=== PATIENT | female | born 1975 | race Two or more races ===

== ENCOUNTER 2024-04-20 21:23 | Emergency (ER) | payer MEDICAID, SELFPAY ==
[2024-04-20 21:24] VITALS: BMI 22.1
[2024-04-20 22:01] VITALS: BP 156/74; PULSE 92; RESP 17; TEMP 36.7; O2SAT 100
--- NOTE | 2024-04-20 22:16 | XR_ITS ---
Examination: PA lateral chest 2 views Technique: Upright PA lateral chest 2 views Exam date and time: April 20, 2024 10:30 PM Comparison December 09, 2023 Indications: Chest pain today. Findings: Normal heart size. Lungs are clear. Osseous structures are intact. Impression: No active disease
--- NOTE | 2024-04-20 22:17 | PD.EDRME ---
Rapid Medical Screening Exam E Arrival date/time: 04/20/24 21:23 48-year-old female with past medical history of diabetes presents to the emergency department complaining of chest pain, diarrhea, shortness of breath, and low blood sugars in the 40s. Chief Complaint: Chest Pain Vital signs: Vital Signs Temperature 98.0 F 04/20/24 22:01 Pulse Rate 92 04/20/24 22:01 Respiratory Rate 17 04/20/24 22:01 Blood Pressure 156/74 H 04/20/24 22:01 Pulse Oximetry (%) 100 04/20/24 22:01 Oxygen Delivery Method Room Air 04/20/24 22:01 Vital signs reviewed by provider: Yes
[2024-04-20 22:44] LABS: Basophils # (Auto) 0.1 Thou/mm3 (0.0-0.2); Basophils % (Auto) 1 % (0-2.5); Eosinophils # (Auto) 0.2 Thou/mm3 (0.0-0.5); Eosinophils % (Auto) 3 % (0-10); Hematocrit 35.6 % (36.0-46.0); Hemoglobin 11.9 g/dL (12.0-16.0); Immature Granulocytes % (Auto) 0 % (0-0); Immature Granulocytes Auto 0.02 Thou/mm3 (0.00-0.00); Lymphocytes # (Auto) 2.1 Thou/mm3 (1.0-4.8); Lymphocytes % (Auto) 26 % (10-50); Mean Corpuscular HGB Conc 33.4 g/dl (31.0-37.0); Mean Corpuscular Hemoglobin 28.8 pg (25.0-35.0); Mean Corpuscular Volume 86 fL (80-100); Monocytes # (Auto) 0.7 Thou/mm3 (0.0-0.8); Monocytes % (Auto) 9 % (0-12); Neutrophils # (Auto) 5.1 Thou/mm3 (1.8-7.7); Neutrophils % (Auto) 62 % (37-80); Nucleated Red Blood Cell % 0 /100 WBC (0); Platelet Count 277 Thou/mm3 (140-440); RDW Standard Deviation 40.8 fL (36.4-46.3); Red Blood Count 4.13 Miln/mm3 (4.00-5.20); White Blood Count 8.2 Thou/mm3 (3.6-11.0)
[2024-04-20 22:58] LABS: HCG,Qualitative Serum Negative
[2024-04-20 23:02] LABS: Partial Thromboplastin Time 24.1 Seconds (22.0-36.0); Prothrombin Time 10.5 Seconds (9.0-12.2)
[2024-04-20 23:13] LABS: B-Type Natriuretic Peptide < 20 pg/mL (0-100)
[2024-04-20 23:18] LABS: Alanine Aminotransferase 32 U/L (10-49); Albumin, Serum 4.7 gm/dL (3.5-5.0); Albumin/Globulin Ratio 1.7 (1.2-2.2); Alkaline Phosphatase 170 U/L (46-116); Anion Gap 8 (7-16); Aspartate Amino Transferase 37 U/L (0-34); BUN/Creatinine Ratio 23 Ratio (12-20); Bilirubin,Total 0.3 mg/dL (0.3-1.2); Blood Urea Nitrogen 32 mg/dL (9-23); Calcium 10.7 mg/dL (8.3-10.6); Calcium (Corrected) 10.7 mg/dL (8.5-10.1); Carbon Dioxide 24.8 mMol/L (20.0-31.0); Chloride 105 mMol/L (98-107); Creatinine (Component) 1.4 mg/dL (0.6-1.3); Globulin 2.8 gm/dL (2.3-3.5); Glucose 129 mg/dL (74-106); Magnesium 1.8 mg/dL (1.6-2.6); Osmolality,Calculated 284 (275-295); Potassium 3.6 mMol/L (3.4-5.1); Sodium 138 mMol/L (136-145); Total Protein 7.5 gm/dL (5.7-8.2); Troponin I < 0.020 ng/mL (0.0-0.045); eGFR 47 See Note
[2024-04-20 23:31] LABS: Collection Type, Urine Clean Catch
[2024-04-20 23:42] LABS: Bilirubin,Urine Negative (Negative); Blood,Urine Negative (Negative); Clarity,Urine Clear (Clear/Hazy); Color,Urine Colorless (Lt Yel-Yel); Culture Indicated,Urine Not Indicated; Glucose, Urine 4+ (Negative); Ketones,Urine Negative (Negative); Leukocyte Esterase,Urine Negative (Negative); Nitrite,Urine Negative (Negative); PH,Urine 5.5 (5.0-7.0); Protein,Urine Negative (Neg - Trace); RBC,Urine 5 /hpf (0-3); Specific Gravity,Urine 1.018 (1.001-1.035); Squamous Epithelial Cell,Urine 1 /hpf (0-5); Urobilinogen,Urine Negative mg/dL (0.0-1.0); WBC,Urine 1 /hpf (0-5)
[2024-04-20 23:52] LABS: Amphetamine/Methamp Scrn,U Positive (Negative); Barbiturate Screen,Urine Negative (Negative); Benzodiazepines Screen,Urine Negative (Negative); Benzoylecgonine Screen, Ur Negative (Negative); Fentanyl Screen,Urine Negative (Negative); Opiate Screen,Urine Negative (Negative); THC Screen,Urine Negative (Negative)
[2024-04-21 01:56] LABS: LDH (Lactate Dehydrogenase) 327 U/L (120-246)
[2024-04-21 01:58] VITALS: BP 111/60; PULSE 86; RESP 18; TEMP 36.5; O2SAT 97
[2024-04-21 04:20] LABS: Troponin I < 0.020 ng/mL (0.0-0.045)
--- NOTE | 2024-04-21 04:43 | PD.EDCHEST ---
ED Chest Pain RME/HPI General Chief Complaint: Chest Pain Stated Complaint: CHEST PAIN, SOB, DIARRHEA Source: patient Arrival date/time: 04/20/24 21:23 Mode of arrival: ambulatory Limitations: no limitations RME / HPI RME / HPI narrative: 04/20/24 21:23 48-year-old female with past medical history of diabetes presents to the emergency department complaining of chest pain, diarrhea, shortness of breath, and low blood sugars in the 40s. Dr. Avitia?s Main ED Evaluation: 48-year-old female with a history of HTN, dyslipidemia, NIDDM2 who presents with intermittent sticking/poking chest pain that came and went several times over yesterday evening. Patient notes the pain, spontaneously resolved, and she has not had any further pain since being in the emergency department. She also notes irregular bowel movements, where she goes from normal bowels to soft stools approximately 5 to 6 times a day since Halloween republican. She admits using methamphetamines at this republican, in addition to weed, and alcohol. She denies sick contacts. She denies blood in her stool. She denies recent fevers, chill sweats, or cough. She denies shortness of breath. Related Data Home Medications ?Medication ?Instructions ?Recorded ?Confirmed insulin lispro protamine-lispro 40 unit subcut BID 01/27/20 04/17/22 100 unit/mL (75-25) subcutaneous susp (Humalog Mix 75-25(U-100)Insuln) atorvastatin 20 mg tablet 20 mg PO QDAY 04/17/22 04/17/22 cyclobenzaprine 5 mg tablet 5 mg PO HS 04/17/22 04/17/22 docusate sodium 100 mg capsule 200 mg PO QDAY PRN Constipation 04/17/22 04/17/22 fluconazole 150 mg tablet 150 mg PO QDAY 04/17/22 04/17/22 gabapentin 100 mg capsule 100 mg PO HS 04/17/22 04/17/22 glipizide 2.5 mg tablet, extended 2.5 mg PO QDAY 04/17/22 04/17/22 release 24 hr ibuprofen 800 mg tablet 800 mg PO TID 04/17/22 04/17/22 metformin 1,000 mg tablet 1,000 mg PO BID 04/17/22 04/17/22 miconazole nitrate 2 % vaginal 1 applic QHSPRN 04/17/22 04/17/22 cream omeprazole 20 mg capsule,delayed 20 mg PO QDAY 04/17/22 04/17/22 release trazodone 50 mg tablet 50 mg PO HS 04/17/22 04/17/22 Previous Rx's ?Medication ?Instructions ?Recorded hydrocodone 5 mg-acetaminophen 325 1 tab PO BID PRN pain #6 tabs 03/16/22 mg tablet hydrocodone 5 mg-acetaminophen 325 1 tab PO Q6H PRN pain #10 tabs 04/26/22 mg tablet acetaminophen 500 mg capsule 1,000 mg (2 x 500 mg) PO TID #30 11/22/22 caps ondansetron 4 mg disintegrating 4 mg PO Q8H PRN nausea and 11/22/22 tablet vomiting #15 tabs ciprofloxacin HCl 500 mg tablet 500 mg PO BID #14 tabs 03/26/23 (Cipro) Allergies Allergy/AdvReac Type Severity Reaction Status Date / Time No Known Allergies Allergy Verified 04/20/24 21:24 Review of Systems Review of Systems Systems Reviewed: All systems reviewed, normal except as documented Past Medical History Past Medical History NEUROLOGIC: Negative Neurological Disorders or Seizures CARDIAC: Positive Cardiac Disorders, Hypercholesterolemia and Edema; Negative Congestive Heart Failure, Cellulitis or Varicose Veins RESPIRATORY: Positive Asthma and Pneumonia; Negative Chronic Obstructive Pulmonary Disease (COPD), Bronchitis, Tuberculosis or Sleep Apnea GASTROINTESTINAL: Positive Gastrointestinal Disorders, Pancreatitis, Gall Bladder Disease, Hiatal Hernia and Gastroesophageal Reflux Disease; Negative Hepatitis, Ulcer or Colorectal Cancer GENITOURINARY: Negative Genitourinary Disorders or Renal Disease REPRODUCTIVE: Positive Previous Pregnancies; Negative Breast Cancer, Genital Herpes, Gonorrhea, Pelvic Inflammatory Disease or Syphilis MUSCULOSKELETAL: Negative Musculoskeletal Disorders or Bone Cancer ENDOCRINE: Positive Endocrine Disorders and Diabetes Mellitus Type 2; Negative Diabetes Mellitus Type 1, Hyperthyroidism or Hypothyroidism HEMATOLOGIC: Positive Blood Disorders and Anemia; Negative Sickle Cell Disease PSYCHO/SOCIAL: Positive Anxiety OTHER HISTORY: Positive Hospitalization and Blood Transfusions; Negative Autoimmune Disease, Shingles, Falls, Blood Transfusion Reaction, Anesthesia Reactions, Organ Transplant, Chemotherapy, MRSA, VRSA, Vancomycin-Resistant Enterococci, Human Immunodeficiency Virus (HIV), Chicken Pox, Measles, Mumps, Rubella (Bolivian Measles), Pertussis, Clostridium Difficile, Cancer, Breast Cancer, Cervical Cancer, Colorectal Cancer, Lung Cancer or Ovarian Cancer Family History FAMILY HISTORY: Positive Family Psychiatric Problems, Family Respiratory Disorders, Family Cardiac Disorders, Family Cancer and Family Surgery; Negative Family Gastrointestinal Problems or Family Anesthesia Reaction Surgical History SURGICAL: Positive Abdominal Surgery and Section; Negative Cardiac Surgery, Pacemaker, Endocrine Surgery, Thyroidectomy, Ear Surgery, Nephrectomy, Joint Replacement, Neurologic Surgery, Mastectomy or Organ Transplant Social History SMOKING STATUS: Never smoker SECOND HAND EXPOSURE: No ED Exam Narrative Physical exam: GENERAL APPEARANCE: AxOx4, generally well-appearing, no acute distress. HEENT: NC, AT. MMM. EOMI, clear conjunctiva, oropharynx clear. NECK: Supple without lymphadenopathy. No stiffness or restricted ROM. HEART: Normal rate and regular rhythm, normal S1/S1, no m/r/g LUNGS: CTAB, moving air well. No crackles or wheezes are heard. ABDOMEN: Soft, nontender, nondistended with good bowel sounds heard. BACK: No midline C/T/L spine pain or deformity, No CVAT, no obvious deformity. EXTREMITIES: Without cyanosis, clubbing or edema. MUSCULOSKELETAL: FROM of all major joints, no chest tenderness NEUROLOGICAL: Grossly nonfocal. Alert and oriented, moving all 4 extremities. CN not formally tested but appear grossly intact. Observed to ambulate with normal gait. Skin: Warm and dry without any rash. General Limitations: Present no limitations Course Course Course Narrative: CXR is ordered for determining etiology of chest pain. Chest x-ray, 2V, indication: chest pain, my interpretation: no acute cardiopulmonary findings, no cardiomegaly, any infiltrates or any free air underneath the diaphragm, overall impression: no acute process. I also reviewed, the radiology interpretation. Heart score of three she is appropriate for discharge. I counseled her on the dangers of continued methamphetamine use. Quality Measures none Orders Category Date Time Status Bedside Blood Glucose NOW Care 04/20/24 22:18 Active EKG (ED ONLY) *Do not use* NOW Care 04/20/24 21:28 Completed EKG (ED Only) Stat Exams 04/20/24 21:28 Ordered XR chest 2V Stat Exams 04/20/24 22:16 Completed B-Type Natriuretic Peptide Stat Lab 04/20/24 22:30 Completed CBC Stat Lab 04/20/24 22:30 Completed Comprehensive Metabolic Panel Stat Lab 04/20/24 22:30 Completed Drug Screen,Urine Stat Lab 04/20/24 23:10 Completed HCG,Qualitative Serum Stat Lab 04/20/24 22:30 Completed LDH (Lactate Dehydrogenase) Stat Lab 04/20/24 22:30 Completed Magnesium Stat Lab 04/20/24 22:30 Completed Partial Thromboplastin Time Stat Lab 04/20/24 22:30 Completed Prothrombin Time with INR Stat Lab 04/20/24 22:30 Completed Troponin I Stat Lab 04/20/24 22:30 Completed Troponin I Stat Lab 04/21/24 03:43 Completed Urinalysis, C/S if Indicated Stat Lab 04/20/24 23:10 Completed Vital Signs Vital signs: Vital Signs Temperature 98.0 F 04/20/24 22:01 Pulse Rate 92 04/20/24 22:01 Respiratory Rate 17 04/20/24 22:01 Blood Pressure 156/74 H 04/20/24 22:01 Pulse Oximetry (%) 100 04/20/24 22:01 Oxygen Delivery Method Room Air 04/20/24 22:01 Procedures -ED Procedure Comment Manual EKG, interpreted by me, NSR, normal intervals, normal axis, no acute ST or T wave changes, overall impression; normal EKG Chest Pain MDM Narrative MDM Narrative:: Scribe Attestation: I, Sumaya Barker, am scribing for and in the presence of Dr. Avitia. Provider Notation: Although this document has been carefully reviewed, there may still be some phonetic and other typographical errors. These errors are purely grammatical due to imperfections in the software program and should not be construed in any way to compromise the substance of the patient's medical care during this visit. Patient data External records reviewed:: [facility] previous records Clinical information provided by:: patient Social determinants that could affect healthcare access:: none Patient has the following chronic illnesses:: Hypercholesterolemia and Edema; Asthma and Pneumonia; Diabetes Mellitus Type 2; Anemia; Anxiety How is presenting disease/condition affected by chronic disease/condition?: uneffected by Evaluation data The following diagnostics were reviewed and interpreted by me:: lab results and radiology exam(s) Lab and/or radiology exams considered but not ordered:: None Interpretation Summary: See narrative. I personally reviewed the radiology data and agree with the radiologist's interpretation. Examination: PA lateral chest 2 views Technique: Upright PA lateral chest 2 views Exam date and time: April 20, 2024 10:30 PM Comparison December 09, 2023 Indications: Chest pain today. Findings: Normal heart size. Lungs are clear. Osseous structures are intact. Impression: No active disease Dictated By: Deshawn Ellis MD Medications / Prescriptions Medications or Prescriptions considered but not ordered:: None Medication administrations:: As above, if any Consultations Consultation(s) initiated? (list below): No Diagnosis Most likely diagnosis given after review of the tests above:: Chest pain, Episodic methamphetamine abuse Admission Indicated Admission indicated?: not indicated Admission Request Was there a request for admission?: No Disposition Plan Disposition Plan: Discharge Discharge Attestation Discharge Attestation: The patient and all family members were given an opportunity to ask questions and understood the discharge instructions. Discharge instructions specifically effects, indications for sooner follow up or return to the emergency department, and the expected course of current diagnosis. Patient condition: Stable Discharge Plan Plan Patient Disposition: HOME (Self Care) Prescriptions/Referrals Prescriptions/Med Rec: No Action Humalog Mix 75-25(U-100)Insuln 100 unit/mL (75-25) suspension 40 unit SUB-Q BID hydrocodone-acetaminophen 5-325 mg tablet 1 tab PO BID MDD 10 PRN (Reason: pain) Qty: 6 0RF ciprofloxacin HCl [Cipro] 500 mg tablet 500 mg PO BID Qty: 14 0RF atorvastatin 20 mg tablet 20 mg PO QDAY Patient Comments: TAKE 1 TABLET BY MOUTH ONCE DAILY trazodone 50 mg tablet 50 mg PO HS Patient Comments: TAKE 1 TABLET BY MOUTH AT NIGHT ibuprofen 800 mg tablet 800 mg PO TID Patient Comments: TAKE 1 TABLET BY MOUTH THREE TIMES DAILY WITH FOOD NEEDED FOR PAIN fluconazole 150 mg tablet 150 mg PO QDAY Patient Comments: TAKE 1 TABLET BY MOUTH ONCE DAILY miconazole nitrate 2 % cream 1 applic QHSPRN Patient Comments: INSERT 1 APPLICATORFUL VAGINALLY ONCE DAILY AT BEDTIME glipizide 2.5 mg tablet extended release 24hr 2.5 mg PO QDAY Patient Comments: TAKE 1 TABLET BY MOUTH ONCE DAILY metformin 1,000 mg tablet 1,000 mg PO BID Patient Comments: TAKE 1 TABLET BY MOUTH TWICE DAILY docusate sodium 100 mg capsule 200 mg PO QDAY PRN (Reason: Constipation) Patient Comments: TAKE 2 CAPSULES BY MOUTH ONCE DAILY NEEDED FOR CONSTIPATION omeprazole 20 mg capsule,delayed release(DR/EC) 20 mg PO QDAY Patient Comments: TAKE 1 CAPSULE BY MOUTH ONCE DAILY AT NIGHT gabapentin 100 mg capsule 100 mg PO HS Patient Comments: TAKE 1 CAPSULE BY MOUTH AT BEDTIME NEEDED FOR PAIN cyclobenzaprine 5 mg tablet 5 mg PO HS Patient Comments: TAKE 1 TABLET BY MOUTH AT BEDTIME NEEDED FOR MUSCLE PAIN hydrocodone-acetaminophen 5-325 mg tablet 1 tab PO Q6H MDD 4 PRN (Reason: pain) Qty: 10 0RF ondansetron 4 mg tablet,disintegrating 4 mg PO Q8H PRN (Reason: nausea and vomiting) Qty: 15 0RF acetaminophen 500 mg capsule 1,000 mg PO TID Qty: 30 0RF Referrals: Kiersten Foley AUTOMOTIVE ENGINEERING TECHNICIAN [Primary Care Provider] - In 1 week Problem List Clinical Impression: Chest pain, Episodic methamphetamine abuse Patient/Caregiver Discharge Instructions Education Materials: ED Chest Pain, Uncertain Cause, ED Drug Abuse Additional Instructions: Stop using methamphetamines and other illicit drugs. You can follow-up with your primary care doctor and/or [facility] if you feel you would benefit from drug and/or alcohol rehabilitation. Feel free return to the emergency department sooner symptoms worsen or if you notice any new, concerning issues. Print Language: Ukrainian Stand Alone Forms: Donna Award Info., Patient Portal Info Letter
[2024-04-21 05:05] VITALS: BP 114/63; PULSE 74; RESP 16; TEMP 36.6; O2SAT 99
== END 2024-04-21 05:05 | disposition home or self-care (01) ==
PROVIDERS: Emergency Provider Emergency Medicine; PCP Nurse Practitioner Family
DX: F15.10 Other stimulant abuse, uncomplicated (principal); R07.9 Chest pain, unspecified; E78.00 Pure hypercholesterolemia, unspecified; I10 Essential (primary) hypertension
CPT/HCPCS: 36415; 71046; 80053; 80307; 81001; 83615; 83735; 83880; 84484; 84703; 85025; 85610; 85730; 93005; 99283

== ENCOUNTER 2024-05-01 17:42 | Inpatient (IN) | payer MEDICAID, SELFPAY ==
[2024-05-01 17:50] VITALS: BP 191/124; PULSE 128; PULSE 138; RESP 21; TEMP 37; O2SAT 97; O2SAT 98; BMI 23.5
--- NOTE | 2024-05-01 17:50 | PC.NURSE ---
Addendum entered by Calvin Jane RN 05/01/24 19:16: @[id number]- Pt displayed erratic behaviors with shaking of her BLE and BUE; pt was uncooperative and not answering questions. Original Note: Received report from custom garment designer Trini; per report, pt's son or significant other called for pt. Apparently, pt called them saying she felt hot and wierd; When family arrived, pt was acting weird. Pt was making spasmodic motions with her extremities. Pt not talking and confused. Only known hx is DM; pt unable to cooperate and not speaking with us. Pt does have known hx with substance abuse per past visits. Pt connected to the monitors at this time.
--- NOTE | 2024-05-01 18:11 | EKG_ITS ---
[facility] Test Date: 2024-05-01 Pat Name: HANNAH LA Department: Room: - Gender: Female Doll Maker: Rosa : 1975 Requested By: Nghia Solo Order Number: [id number] Reading MD: Nghia Solo Measurements Intervals [place] Rate: 100 P: 57 VT: 139 QRS: 45 QRSD: 85 T: 73 QT: 332 QTc: 429 Interpretive Statements SINUS TACHYCARDIA ABNORMAL RHYTHM ECG Compared to ECG 01/02/2022 17:54:59 No significant changes /store/S0/[id number]/ecg/[id number].pdf
[2024-05-01] MEDS: ONDANSETRON INJ 2 MG/ML INJ 2 ML 4 MG IV (18:24)
--- NOTE | 2024-05-01 18:24 | PC.NURSE ---
Daughter, Liz, at bedside; pt talks to daughter but does not speak to staff.
[2024-05-01] MEDS: HALOPERIDOL LACT INJ 5 MG/ML VIAL IV (18:25)
[2024-05-01] MEDS: LORazepam 2 MG/ML VIAL IVP (18:25)
[2024-05-01] MEDS: SODIUM CHLORIDE 0.9% 1000 ML 1,000 ML 999 ML IV (18:25)
[2024-05-01 18:36] LABS: Collection Type, Urine Clean Catch; RBC,Urine 0 /hpf (0-3); WBC,Urine 0 /hpf (0-5)
[2024-05-01 18:40] LABS: Basophils # (Auto) 0.1 Thou/mm3 (0.0-0.2); Basophils % (Auto) 1 % (0-2.5); Eosinophils # (Auto) 0.2 Thou/mm3 (0.0-0.5); Eosinophils % (Auto) 2 % (0-10); Hematocrit 40.8 % (36.0-46.0); Hemoglobin 13.9 g/dL (12.0-16.0); Immature Granulocytes % (Auto) 0 % (0-0); Immature Granulocytes Auto 0.03 Thou/mm3 (0.00-0.00); Lymphocytes # (Auto) 2.5 Thou/mm3 (1.0-4.8); Lymphocytes % (Auto) 24 % (10-50); Mean Corpuscular HGB Conc 34.1 g/dl (31.0-37.0); Mean Corpuscular Hemoglobin 28.3 pg (25.0-35.0); Mean Corpuscular Volume 83 fL (80-100); Monocytes # (Auto) 0.6 Thou/mm3 (0.0-0.8); Monocytes % (Auto) 6 % (0-12); Neutrophils % (Auto) 68 % (37-80); Nucleated Red Blood Cell % 0 /100 WBC (0); Platelet Count 330 Thou/mm3 (140-440); RDW Standard Deviation 37.7 fL (36.4-46.3); Red Blood Count 4.91 Miln/mm3 (4.00-5.20); White Blood Count 10.3 Thou/mm3 (3.6-11.0)
[2024-05-01 18:47] VITALS: BP 149/89; PULSE 106; RESP 20; O2SAT 99
--- NOTE | 2024-05-01 18:50 | PC.NURSE ---
Pt now talking to RN and now calm and cooperative.
--- NOTE | 2024-05-01 18:54 | EDNOTE_ITS ---
Altered Mental Status RME/HPI General Chief Complaint: Altered Mental Status Stated Complaint: ALTERED Time Seen by Provider: 05/01/24 18:05 Arrival date/time: 05/01/24 17:42 RME / HPI RME / HPI narrative: This section includes all my notes and documentations, including HPI, PE, and ED course. Nghia Su MD HPI: 48-year-old female here to be evaluated with AMS. The history is limited because I arrived to work at 6 PM, EMS had departed already. Patient can't provide story due to AMS. Family not present. According to one of the nurses, she may have history of methamphetamine use. Apparently patient called family with AMS. When family went to her home, her mental status was altered (no further details for me) and called EMS. ROS: Can't obtain from the patient due to current clinical condition. Physical Exam: General: Patient seems to be awake. But she doesn't look at the person talking to her. And her whole body, including arms and legs, are flailing and dry writing with no purpose. Eyes: Conjunctivae and lids clear. EOMI. PERRL. ENT: No signs of trauma. Neck: Supple. No carotid bruit. No JVD. Heart: RRR. Lungs: No respiratory distress. Good air movement. No rhonchi, wheezing, rales. Chest: No tenderness. Abdomen: Soft and nontender. Back: No tenderness. Legs: No clubbing, cyanosis, edema. Skin: Warm and dry. Neuro: Difficult exam due to AMS. Musculoskeletal: All major joints and bones are not tender with no limited ROM. I reviewed all diagnostic test results. My interpretation of the EKG is sinus rhythm with nonspecific ST-T changes. My interpretation of the chest x-ray is no acute findings. My review of the head CT report is no acute findings. Blood tests and urine tests are unremarkable, except Mg 1.4 and UDS positive for marijuana. At this point, diagnoses include AMS of unclear etiology. Treatment here included IV fluid, Zofran 4 mg IV, Ativan 2 mg IV, Haldol 5 mg IV, and MgSO4 2 gram IV. Patient is calm now and seems to be resting. I discussed the case with our hospitalist. About the presentation and exam and diagnostics and treatments here. And need of further care in the hospital. Will accept the patient. Nghia Su MD Related Data Home Medications ?Medication ?Instructions ?Recorded ?Confirmed insulin lispro protamine-lispro 40 unit subcut BID 01/27/20 05/01/24 100 unit/mL (75-25) subcutaneous susp (Humalog Mix 75-25(U-100)Insuln) atorvastatin 20 mg tablet 40 mg PO QDAY 04/17/22 05/01/24 gabapentin 100 mg capsule 600 mg PO QDAY 04/17/22 05/01/24 metformin 1,000 mg tablet 1,000 mg PO BID 04/17/22 05/01/24 omeprazole 20 mg capsule,delayed 40 mg PO QAM 04/17/22 05/01/24 release hydrochlorothiazide 12.5 mg tablet 12.5 mg PO QDAY 05/01/24 05/01/24 lisinopril 20 mg tablet 20 mg PO QDAY 05/01/24 05/01/24 semaglutide 2 mg/dose (8 mg/3 mL) 2 mg subcut QWEEK 05/01/24 05/01/24 subcutaneous pen injector (Ozempic) Allergies Allergy/AdvReac Type Severity Reaction Status Date / Time No Known Allergies Allergy Verified 05/01/24 23:13 Course Quality Measures none Orders Category Date Time Status EKG (ED ONLY) *Do not use* NOW Care 05/01/24 18:11 Completed Saline [Insert IV] NOW Care 05/01/24 18:05 Completed Straight [In and Out Catheter] X1 Care 05/01/24 18:[address] head/brain wo con Stat Exams 05/01/24 19:53 Completed EKG (ED Only) Stat Exams 05/01/24 18:11 Draft XR chest 1V portable Stat Exams 05/01/24 19:53 Completed Alcohol, Blood Medical Stat Lab 05/01/24 18:00 Completed CBC Stat Lab 05/01/24 18:00 Completed CK [Creatine Kinase] Stat Lab 05/01/24 18:00 Completed CMP [Comprehensive Metabolic Panel] Stat Lab 05/01/24 18:00 Completed Drug Screen,Urine Stat Lab 05/01/24 18:00 Completed Magnesium Stat Lab 05/01/24 18:00 Completed Troponin I Stat Lab 05/01/24 18:00 Completed UA [Urinalysis] Stat Lab 05/01/24 18:00 Completed Haloperidol Lactate [Haldol Inj] Med 05/01/24 18:08 Discontinued 5 mg IV X1 ONE LORazepam [Ativan Inj] Med 05/01/24 18:08 Discontinued 2 mg IVP X1 ONE Magnesium Sulfate 2 GM Ivpb [Magnesium Sulfate Ivpb] Med 05/01/24 19:07 Discontinued 2 gm in 50 ml IV X1 Ondansetron Inj [Zofran Inj] Med 05/01/24 18:08 Discontinued 4 mg IV X1 ONE Sodium Chloride 0.9% 1000 ml [Ns] 1,000 ml Med 05/01/24 18:08 Discontinued IV 999 mls/hr Vital Signs Vital signs: Vital Signs Temperature 98.6 F 05/01/24 17:50 Pulse Rate 128 H 05/01/24 17:50 Respiratory Rate 21 H 05/01/24 17:50 Blood Pressure 191/124 H 05/01/24 17:50 Pulse Oximetry (%) 98 05/01/24 17:50 Oxygen Delivery Method Room Air 05/01/24 17:50 Altered Mental Status Patient data External records reviewed:: [facility] previous records Clinical information provided by:: EMS and family Social determinants that could affect healthcare access:: substance use Patient has the following chronic illnesses:: See charting How is presenting disease/condition affected by chronic disease/condition?: exacerbated by Evaluation data The following diagnostics were reviewed and interpreted by me:: EKG tracing(s) (My interpretation of the EKG is: Sinus rhythm (100 bpm) with nonspecific ST-T changes. Nghia Su MD) Lab and/or radiology exams considered but not ordered:: None Interpretation Summary: Normal diagnostic tests Medications / Prescriptions Medications or Prescriptions considered but not ordered:: None Medication administrations:: Medication Administration History Acetaminophen (Acetaminophen 325 Mg Tablet) 650 mg PO Q6H PRN PRN Reason: Mild Pain 1-3 or Fever >100.4 Stop: 05/31/24 22:50 Dextrose (Dextrose 50%-Water Inj 50 Ml Syringe) 25 ml IV Q15MIN PRN PRN Reason: BG 50-70 responsive npo pt Stop: 05/31/24 22:57 Dextrose (Dextrose 50%-Water Inj 50 Ml Syringe) 50 ml IV Q15MIN PRN PRN Reason: BG <50 OR BG <70 & pt unresponsive Stop: 05/31/24 22:57 Glucagon (Glucagon Inj 1 Mg Vial) 1 mg IM Q15MIN PRN PRN Reason: BG <70, and no IV access Haloperidol Lactate (Haloperidol Lact Inj 5 Mg/Ml Vial) 2 mg IV Q4HR PRN PRN Reason: AGITATION (SEVERE) Stop: 05/06/24 23:02 Heparin Sodium (Porcine) (Heparin Sod Inj 5000 Unit/Ml Vial) 5,000 unit SC Q8HR HANSA Stop: 05/15/24 22:59 Last Admin: 05/02/24 00:23 Dose: 5,000 unit Documented By: KVNG Co-signed By: JIMBO Insulin Human Lispro (Insulin Lispro (Admelog) 1 Unit/0.01 Ml Unit) 0 unit SC Q6HR HANSA; Protocol Stop: 06/01/24 00:00 Last Admin: 05/02/24 00:04 Dose: Not Given Documented By: KVNG Non-Admin Reason: Per Protocol Lorazepam (Lorazepam 2 Mg/Ml Vial) 2 mg IVP Q5MIN PRN PRN Reason: SEIZURES Breakthrough Stop: 05/06/24 23:04 Ondansetron HCl (Ondansetron Inj 2 Mg/Ml Inj 2 Ml) 4 mg IV Q6H PRN; Protocol PRN Reason: NAUSEA OR VOMITING Stop: 05/31/24 22:50 Pantoprazole Sodium (Pantoprazole 40 Mg Tablet) 40 mg PO QDAY [facility] Stop: 06/01/24 08:59 Discontinued Medications Haloperidol Lactate (Haloperidol Lact Inj 5 Mg/Ml Vial) 5 mg IV X1 ONE Stop: 05/01/24 18:09 Last Admin: 05/01/24 18:25 Dose: 5 mg Documented By: GM Sodium Chloride (Ns) 1,000 mls @ 999 mls/hr IV .Q1H1M ONE Stop: 05/01/24 19:08 Last Infusion: 05/01/24 19:57 Dose: Infused Documented By: Admin: 05/01/24 18:25 Dose: 999 mls/hr Documented By: GM Magnesium Sulfate (Magnesium Sulfate Ivpb) 2 gm in 50 mls @ 25 mls/hr IV X1 ONE Stop: 05/01/24 21:06 Last Infusion: 05/01/24 22:05 Dose: Infused Documented By: Admin: 05/01/24 19:55 Dose: 25 mls/hr Documented By: KVNG Lorazepam (Lorazepam 2 Mg/Ml Vial) 2 mg IVP X1 ONE Stop: 05/01/24 18:09 Last Admin: 05/01/24 18:25 Dose: 2 mg Documented By: NESSA Comments: Lorazepam (Lorazepam 2 Mg/Ml Vial) 2 mg IVP Q4H PRN PRN Reason: AGITATION (MODERATE) Stop: 05/06/24 22:59 Ondansetron HCl (Ondansetron Inj 2 Mg/Ml Inj 2 Ml) 4 mg IV X1 ONE; Protocol Stop: 05/01/24 18:09 Last Admin: 05/01/24 18:24 Dose: 4 mg Documented By: NESSA See charting Consultations Consultation(s) initiated? (list below): No Diagnosis Most likely diagnosis given after review of the tests above:: AMS of unclear etiology Admission Indicated Admission indicated?: indicated Admission Request Was there a request for admission?: Yes Admission Attestation Admission request attestation: Discussed case with Hospitalist service regarding admission. Discussed patients ED course, exam findings, labs, and radiology results. The Hospitalist [agrees,declines] to accept the patient for admission. Disposition Plan Disposition Plan: Admit Discharge Plan Plan Patient Disposition: Admit Acute Care w/in Hospital Problem List Clinical Impression: AMS (altered mental status)
[2024-05-01 18:58] LABS: Amphetamine/Methamp Scrn,U Negative (Negative); Barbiturate Screen,Urine Negative (Negative); Benzodiazepines Screen,Urine Negative (Negative); Benzoylecgonine Screen, Ur Negative (Negative); Fentanyl Screen,Urine Negative (Negative); Opiate Screen,Urine Negative (Negative); THC Screen,Urine Positive (Negative)
[2024-05-01 18:59] LABS: Alanine Aminotransferase 19 U/L (10-49); Albumin, Serum 4.8 gm/dL (3.5-5.0); Albumin/Globulin Ratio 1.6 (1.2-2.2); Alcohol, Blood Medical < 3.0 mg/dL (0-10.0); Alkaline Phosphatase 129 U/L (46-116); Anion Gap 12 (7-16); Aspartate Amino Transferase 18 U/L (0-34); BUN/Creatinine Ratio 17 Ratio (12-20); Bilirubin,Total 0.3 mg/dL (0.3-1.2); Blood Urea Nitrogen 15 mg/dL (9-23); Calcium 10.3 mg/dL (8.3-10.6); Calcium (Corrected) 10.3 mg/dL (8.5-10.1); Chloride 102 mMol/L (98-107); Creatine Kinase 51 U/L (34-171); Creatinine (Component) 0.9 mg/dL (0.6-1.3); Glucose 177 mg/dL (74-106); Magnesium 1.4 mg/dL (1.6-2.6); Osmolality,Calculated 276 (275-295); Potassium 3.5 mMol/L (3.4-5.1); Sodium 136 mMol/L (136-145); Total Protein 7.8 gm/dL (5.7-8.2); Troponin I < 0.002 ng/mL (0.0-0.045); eGFR > 60 See Note
[2024-05-01 19:10] LABS: Bilirubin,Urine Negative (Negative); Blood,Urine Negative (Negative); Clarity,Urine Clear (Clear/Hazy); Color,Urine Lt-Yellow (Lt Yel-Yel); Glucose, Urine 4+ (Negative); Ketones,Urine Negative (Negative); Leukocyte Esterase,Urine Negative (Negative); Nitrite,Urine Negative (Negative); PH,Urine 6.5 (5.0-7.0); Protein,Urine Trace (Neg - Trace); Specific Gravity,Urine 1.029 (1.001-1.035); Squamous Epithelial Cell,Urine 1 /hpf (0-5)
--- NOTE | 2024-05-01 19:53 | XR_ITS ---
Examination: AP chest single view Technique: AP portable upright chest single view Exam date and time: May 01, 20242002 hrs. Indications: Shortness of breath today Findings: Normal heart size Reduced inspiratory effort No lobar pneumonia The osseous structures are intact Impression: Poor inspiratory effort chest x-ray
--- NOTE | 2024-05-01 19:53 | XR_ITS ---
Examination: CT brain head without contrast. 2-D sagittal coronal reconstructions Date and time of exam:May 01, [id number] hrs. Comparison December 09, 2023 Indications: Onset altered mental status today CTDI: vol (mGy):49.1 DLP: (mGycm):945 Technique: Multiple CT axial sections of the brain have been obtained, 5 mm slice thickness. Contrast has not been administered. 2-D sagittal, coronal reconstructions have been obtained Low dose protocols were performed. One or more of the following dose reduction techniques were used; automated exposure control, adjustment of the mA and/or KV according to patient size, use of iterative reconstruction technique. Findings: No significant ventricular enlargement. Intra-axial or extra-axial hemorrhage density is not seen. No mass effect or midline shift Basal cisterns are not remarkable. Fourth ventricle is midline. Cranial vault intact. Impression: Negative for acute hemorrhage, mass effect or midline shift Advise clinical correlation and follow-up accordingly
[2024-05-01] MEDS: Magnesium Sulfate 2 GM Ivpb 2 GM/50 ML BAG IV (19:55)
[2024-05-01 21:42] VITALS: BP 104/60; PULSE 80; RESP 16; O2SAT 99
[2024-05-01 23:23] VITALS: PULSE 77; RESP 20; RESP 99
[2024-05-02] VITALS (9 sets, daily range): BP systolic 117–174; BP diastolic 65–95; PULSE 71–97; RESP 14–98; TEMP 36.1–37; O2SAT 96–99
[2024-05-02] MEDS: HEPARIN SOD INJ 5000 UNIT/ML VIAL SC ×3 (00:23→21:47)
--- NOTE | 2024-05-02 01:57 | ESHP_ITS ---
Addendum History & Physical Addendum Date of report being addended: 05/01/24 Narrative: Attending's attestation: I reviewed labs, imaging, EKG, home medications and prior available records. Face to face evaluation was performed by me. I have personally examined the patient and discussed assessment and plan with the IM team. I reviewed the resident note and agree with the plan with exceptions as below. 48-year-old female with history of polysubstance use including methamphetamine a nd marijuana, type 2 diabetes mellitus, hypertension, who presented with a chief complaint of altered mental status and episodes for which she looks anxious and panicky. Acute encephalopathy: Etiology is unclear but could be in the setting of polysubstance use versus seizure activity versus polypharmacy. CT head is negative for acute changes. No pertinent metabolic etiologies. Will admit the patient for further workup. Will consult neurology for possible EEG/MRI brain. Marijuana use/methamphetamine use: Likely contributing to her symptoms. When she is more awake she needs to be counseled regarding the importance of stopping drug abuse.
--- NOTE | 2024-05-02 03:46 | PC.NURSE ---
Pt yelling out daughters name, RN in room re-orient patient, pt starts shaking all extremities, will not voice needs to RN, continues to want daughter, pt notified current time 3:30 am, daughter at home, will not calm down, trying to get out of bed, keeps eyes closed, agrees to get back in bed when RN states will call daughter, shaking stops, and is calm and relaxed when RN leaves room to call daughter. Daughter called at home and notified pt agitation, agreed to come in.
--- NOTE | 2024-05-02 04:56 | ESHP_ITS ---
Documentation for date of: 05/02/24 [facility] History of Present Illness History of present illness: CC: tremors Patient is a 48-year-old female with a past medical history of diabetes mellitus type 2 insulin-dependent, hypertension, chronic back pain, history of pancreatitis, and polysubstance use disorder. Patient presented to the emergency room from home with a chief complaint of altered mental status with a single episode of confusion, bilateral tremors, and confusion. Family member denied headaches or vision loss. Denied tinnitus. Denied a postictal state or eyes rolling back. Denied loss of urinary bladder. Positive for ear pain. Family denied this happening before. Admitted on 05/01/2024 at for altered mental status. ER Course: Vitals: T 98.6, HR 128, RR 21, BP 191/124, SpO2 98 RA CBC: unremarkable CMP: glucose 177, Ca 10.3, Mg 1.4, Alkaline phosphatase 129 CK 51 troponin <0.002 UA negative Utox (05/01/2024): Positive for THC;previously positive to meth (04/20/24) EKG Sinus tachycardia Cxr (05/01/2024) Poor inspiratory effort Head CT (05/01/2024): Negative for acute hmorrhage, mass effect or midline shift Medication: Ativan 2 mg IVP X1, Haloperidol 5 mg IV X1, Mg sulfate 2 mg IV PMH: DM 2 insulin dependent HTN hx of pancreatitis chronic back pain, pain Dr. Swann Home Medication: Atorvastatin 40 mg PO Qday Buprenorphine (Butrans) 5 mcg topical, once per week-for backpain gabapentin 600 mg PO TID Hydrochlorothiazide 12.5 PO Qday Lispro 20 vs 15 units ??? Metformin 1000 BId Omeprazole Social History: Meth and TCH Allergies: None Code Status: Full Code Review of Systems Review of Systems Narrative Review of Systems: General appearance: NO weight change, NO fatigue, NO weakness, NO fever, NO chills, NO night sweats, No cough Skin: NO rash, NO itching, NO sores, NO moles HEENT: NO Trauma, NO nausea, NO vomiting, NO visual changes, NO blurry vision, NO double vision, NO tinnitus, NO vertigo, NO ear discharge, NO rhinorrhea, NO stuffiness, NO sneezing, NO allergy, NO epistaxis. NO Hoarseness, NO sore throat, NO swollen neck. Cardiac: NO Palpitations, NO dyspnea on exertion, NO orthopnea, NO paroxysmal nocturnal dyspnea, NO edema Respiratory: NO Shortness of Breath, NO Wheezing, NO Cough, NO Sputum, NO hemoptysis GI:NO appetite, NO nausea, NO vomiting, NO dysphagia, NO changes in bowel frequency, NO stool color, NO diarrhea, NO constipation, NO hemetemesis, NO hemorrhoids, NO melena, NO hematechezia, NO abdominal pain, NO jaundice Renal: NO frequency, NO hesitancy, NO urgency, NO hematuria, NO nocturia, NO incontinence MSK: NO muscle weakness, NO gout, NO arthritis, NO muscle stiffness Neuro: NO headaches, YES tremors, NO weakness, NO paralysis, YES seizures per family w/ tremors, NO loss of consciousness, NO numbness. Hem: NO anemia, NO easy bruising/bleeding, NO petechiae, NO purpura Endo: NO heat/cold intolerance, NO excessive sweating, NO polyuria, NO polydipsia, NO polyphagia, NO thyroid problems, YEs diabetes Pysch: NO mood, NO anxiety, NO depression Exam Vital Signs Temp Pulse Resp BP Pulse Ox O2 Del Method 97.8 F 97 14 174/90 H 98 Room Air 05/02/24 04:00 05/02/24 04:00 05/02/24 04:00 05/02/24 04:00 05/02/24 04:00 05/02/24 04:00 Narrative Exam General Appearance: Alert & Oriented X1, well-nourished female who is lying in bed in no acute distress HEENT: Skull symmetrical and atraumatic. Conjunctivae pink and moist. Pupils equal, round, reactive to light and accommodation (PERRL). External ear without lesion or discharge. Straight, nares patient, mucosa pink, no discharge. No thyroid nodule appreciated. No cervical lymphadenopathy. Cardio: Normal Rate and Rhythm with S1 and S2 heart sounds. No murmurs or extra heart sounds auscultated. No bruits on carotid auscultation. No peripheral edema or cyanosis. Lungs: Symmetric with good expansion. Chest and back non-tender. Breath sounds vesicular without crackles, wheezing or rhonchi Abdomen: Non-tender, Non-distended, Normal Reactive Bowel Sounds Neuro: No Alert, NO cooperative, Yes oriented to person, NO place, and NO time. Speech clear. CN grossly intact. Upper motor strength 5/5 and Lower motor strength 5/5. Sensation intact. Results: Labs 05/02/24 04:30 05/02/24 04:30 Labs: Short CBC 05/01/24 Range/Units 18:00 WBC 10.3 (3.6-11.0) Thou/mm3 Hgb 13.9 (12.0-16.0) g/dL Hct 40.8 (36.0-46.0) % Plt Count 330 D (140-440) Thou/mm3 BMP 05/01/24 18:00 Sodium 136 Potassium 3.5 Chloride 102 Carbon Dioxide 22.0 BUN 15 Creatinine 0.9 Glucose 177 H Calcium 10.3 Cardiac Enzymes 05/01/24 Range/Units 18:00 Total Creatine Kinase 51 (34-171) U/L Troponin I < 0.002 (0.0-0.045) ng/mL Liver Function 05/01/24 Range/Units 18:00 Total Bilirubin 0.3 (0.3-1.2) mg/dL AST 18 (0-34) U/L ALT 19 (10-49) U/L Alkaline Phosphatase 129 H (46-116) U/L Albumin 4.8 (3.5-5.0) gm/dL Urine 05/01/24 Range/Units 18:00 Urine Color Lt-Yellow (Lt Yel-Yel) Urine Clarity Clear (Clear/Hazy) Urine pH 6.5 (5.0-7.0) Ur Specific [place] 1.029 (1.001-1.035) Urine Protein Trace (Neg - Trace) Urine Glucose (UA) 4+ A (Negative) Quality Measures Quality Measures none Medications Home Medications and Allergies Home Medications ?Medication ?Instructions ?Recorded ?Confirmed ?Type atorvastatin 20 mg tablet 40 mg PO QDAY 04/17/22 05/01/24 History metformin 1,000 mg tablet 1,000 mg PO BID 04/17/22 05/01/24 History omeprazole 20 mg capsule,delayed 40 mg PO QAM 04/17/22 05/01/24 History release hydrochlorothiazide 12.5 mg tablet 12.5 mg PO QDAY 05/01/24 05/01/24 History lisinopril 20 mg tablet 20 mg PO QDAY 05/01/24 05/01/24 History semaglutide 2 mg/dose (8 mg/3 mL) 2 mg subcut QWEEK 05/01/24 05/01/24 History subcutaneous pen injector (Ozempic) buprenorphine 5 mcg/hour weekly 5 mcg topical QWEEK 05/02/24 05/02/24 History transdermal patch (Butrans) gabapentin 300 mg capsule 600 mg PO TID 05/02/24 05/02/24 History insulin lispro protamine-lispro 15 unit subcut QPM 05/02/24 05/02/24 History 100 unit/mL (75-25) subcutaneous pen (Humalog Mix 75-25 KwikPen) insulin lispro protamine-lispro 20 unit subcut QAM 05/02/24 05/02/24 History 100 unit/mL (75-25) subcutaneous pen (Humalog Mix 75-25 KwikPen) Allergies Allergy/AdvReac Type Severity Reaction Status Date / Time No Known Allergies Allergy Verified 05/01/24 23:13 Visit Medications Acetaminophen (Acetaminophen 325 Mg Tablet) 650 mg PO Q6H PRN PRN Reason: Mild Pain 1-3 or Fever >100.4 Stop: 05/31/24 22:50 Dextrose (Dextrose 50%-Water Inj 50 Ml Syringe) 25 ml IV Q15MIN PRN PRN Reason: BG 50-70 responsive npo pt Stop: 05/31/24 22:57 Dextrose (Dextrose 50%-Water Inj 50 Ml Syringe) 50 ml IV Q15MIN PRN PRN Reason: BG <50 OR BG <70 & pt unresponsive Stop: 05/31/24 22:57 Glucagon (Glucagon Inj 1 Mg Vial) 1 mg IM Q15MIN PRN PRN Reason: BG <70, and no IV access Haloperidol Lactate (Haloperidol Lact Inj 5 Mg/Ml Vial) 2 mg IV Q4HR PRN PRN Reason: AGITATION (SEVERE) Stop: 05/06/24 23:02 Heparin Sodium (Porcine) (Heparin Sod Inj 5000 Unit/Ml Vial) 5,000 unit SC Q8HR HANSA Stop: 05/15/24 22:59 Last Admin: 05/02/24 00:23 Dose: 5,000 unit Insulin Human Lispro (Insulin Lispro (Admelog) 1 Unit/0.01 Ml Unit) 0 unit SC Q6HR HANSA; Protocol Stop: 06/01/24 00:00 Last Admin: 05/02/24 00:04 Dose: Not Given Lorazepam (Lorazepam 2 Mg/Ml Vial) 2 mg IVP Q5MIN PRN PRN Reason: SEIZURES Breakthrough Stop: 05/06/24 23:04 Ondansetron HCl (Ondansetron Inj 2 Mg/Ml Inj 2 Ml) 4 mg IV Q6H PRN; Protocol PRN Reason: NAUSEA OR VOMITING Stop: 05/31/24 22:50 Pantoprazole Sodium (Pantoprazole 40 Mg Tablet) 40 mg PO QDAY HANSA Stop: 06/01/24 08:59 Discontinued Medications Haloperidol Lactate (Haloperidol Lact Inj 5 Mg/Ml Vial) 5 mg IV X1 ONE Stop: 05/01/24 18:09 Last Admin: 05/01/24 18:25 Dose: 5 mg Sodium Chloride (Ns) 1,000 mls @ 999 mls/hr IV .Q1H1M ONE Stop: 05/01/24 19:08 Last Infusion: 05/01/24 19:57 Dose: Infused Magnesium Sulfate (Magnesium Sulfate Ivpb) 2 gm in 50 mls @ 25 mls/hr IV X1 ONE Stop: 05/01/24 21:06 Last Infusion: 05/01/24 22:05 Dose: Infused Lorazepam (Lorazepam 2 Mg/Ml Vial) 2 mg IVP X1 ONE Stop: 05/01/24 18:09 Last Admin: 05/01/24 18:25 Dose: 2 mg Lorazepam (Lorazepam 2 Mg/Ml Vial) 2 mg IVP Q4H PRN PRN Reason: AGITATION (MODERATE) Stop: 05/06/24 22:59 Ondansetron HCl (Ondansetron Inj 2 Mg/Ml Inj 2 Ml) 4 mg IV X1 ONE; Protocol Stop: 05/01/24 18:09 Last Admin: 05/01/24 18:24 Dose: 4 mg Assessment & Plan Plan Patient is a 48-year-old female with a past medical history of diabetes mellitus type 2 insulin-dependent, hypertension, chronic back pain, history of pancreatitis, and polysubstance use disorder who was admitted for altered mental status change. #Altered Mental Status Change Etiolgoy: Given concern for seizures, with tremors, but less likley given no post-ictal state and no loss of urinary bladder control. Consult Dr. Collier. DDx: TIA vs polysubstance use Plan: -Ativan 2 mg IVP Q5min PRN-seizure breakthrough -Haloperidol 2 mg IV Q4HR PRN -CBC, CMP -Seizure precautions -Aspiration precautions -Neuro Checks 4QHR -NPO -Pending Swallow Evaluations. -Consult Neuro, appreciate recommendations, Dr. Collier #DM type 2 insulin dependent Glucose on admission 177 and previous A1c on file (07/10/2020) 12.4. Plan: -A1c -Sliding Scale Lispro Q6HR #HTN Restart home medication Plan Lisinopril 20 mg PO QDay Health Maintenance: Disp: Pt is currently admitted to floors for further management of altered mental status, awaiting consult FEN: NPO DVT: on subQ heparin Code: Full code - The patient's plan was discussed with attending Dr. Neil Ventura MD PGY1 Internal Medicine Attending Provider Attestation/Addendum I reviewed labs, imaging, EKG, home medications and prior available records. Face to face evaluation was performed by me. I have personally examined the patient and discussed assessment and plan with the IM team. I reviewed the resident note and agree with the plan with exceptions as below. See my H&P addendum in the separate note.
[2024-05-02 06:05] LABS: Basophils % (Auto) 0 % (0-2.5); Eosinophils # (Auto) 0.1 Thou/mm3 (0.0-0.5); Eosinophils % (Auto) 1 % (0-10); Hematocrit 35.8 % (36.0-46.0); Hemoglobin 12.3 g/dL (12.0-16.0); Immature Granulocytes % (Auto) 0 % (0-0); Immature Granulocytes Auto 0.03 Thou/mm3 (0.00-0.00); Lymphocytes # (Auto) 1.6 Thou/mm3 (1.0-4.8); Lymphocytes % (Auto) 17 % (10-50); Mean Corpuscular HGB Conc 34.4 g/dl (31.0-37.0); Mean Corpuscular Hemoglobin 28.6 pg (25.0-35.0); Mean Corpuscular Volume 83 fL (80-100); Monocytes # (Auto) 0.4 Thou/mm3 (0.0-0.8); Monocytes % (Auto) 4 % (0-12); Neutrophils # (Auto) 7.5 Thou/mm3 (1.8-7.7); Neutrophils % (Auto) 77 % (37-80); Nucleated Red Blood Cell % 0 /100 WBC (0); Platelet Count 295 Thou/mm3 (140-440); RDW Standard Deviation 38.5 fL (36.4-46.3); White Blood Count 9.7 Thou/mm3 (3.6-11.0)
[2024-05-02 06:57] LABS: Alanine Aminotransferase 15 U/L (10-49); Albumin, Serum 4.2 gm/dL (3.5-5.0); Albumin/Globulin Ratio 1.6 (1.2-2.2); Alkaline Phosphatase 107 U/L (46-116); Anion Gap 9 (7-16); Aspartate Amino Transferase 16 U/L (0-34); BUN/Creatinine Ratio 22 Ratio (12-20); Blood Urea Nitrogen 13 mg/dL (9-23); Calcium 9.6 mg/dL (8.3-10.6); Calcium (Corrected) 9.6 mg/dL (8.5-10.1); Carbon Dioxide 23.6 mMol/L (20.0-31.0); Chloride 104 mMol/L (98-107); Creatinine (Component) 0.6 mg/dL (0.6-1.3); Estimated Creatinine Clearance 113.9 mL/min (>60); Globulin 2.7 gm/dL (2.3-3.5); Glucose 116 mg/dL (74-106); Osmolality,Calculated 274 (275-295); Potassium 3.4 mMol/L (3.4-5.1); Sodium 137 mMol/L (136-145); Total Protein 6.9 gm/dL (5.7-8.2); eGFR > 60 See Note
--- NOTE | 2024-05-02 09:51 | XR_ITS ---
Examination: MRI of brain without intravenous contrast. MRI brain with intravenous contrast. Date and time of exam:May 02, 2024 1326 hrs. Indications: Altered mental status with seizure activity today Technique: Multiple axial and sagittal images of the brain to been obtained. Siemens high-resolution 1.52 Emiliana short bore scanner utilized. Sagittal sections, T1 weighted images, TR 500, TE 14, are performed. Axial sections proton-density and T2-weighted images have been obtained. Inversion recovery axial images, TR 9260, TE 111, TR 2500. Diffusion weighted images, axial sections, TR 4800, TE 128, B value 1000. Axial sections, ADC map, TR 4800, TE 128. Axial and coronal images were also obtained post 13 cc gadolinium administered intravenously. Findings:: Enlargement of the sella turcica is not present. The optic chiasm and infundibular stalk are not remarkable. There is no localized enlargement of the medulla or prabhu. Fourth ventricle and cerebellar tonsils appear normal in position. No subacute area of hemorrhage density is seen. Fourth ventricle is midline. Mass in the cerebellopontine angle region is not evident. 7th and 8th nerve complexes exhibit symmetry Globes are symmetrical Orbital musculature including medial lateral rectus muscles do not exhibit abnormality Suspicious for punctate focus increased signal on the right frontal white matter FLAIR image 15 Effacement of the cortical sulcal markings is not identified. Mass effect upon the ventricular system is not identified. Diffusion-weighted images are not available Contrast images demonstrate no abnormal enhancement Impression: Single punctate focus increased signal on the right frontal white matter, consider early demyelinating disease
[2024-05-02] MEDS: POTASSIUM CHLORIDE 20 mEq TABCR 40 MEQ PO (09:52)
[2024-05-02] MEDS: Magnesium Sulfate 2 GM Ivpb 2 GM/50 ML BAG IV (09:52)
[2024-05-02] MEDS: Lisinopril 20 MG TABLET PO (09:52)
[2024-05-02] MEDS: PANTOPRAZOLE 40 MG TABLET PO (09:53)
[2024-05-02 10:34] LABS: Thyroid Stimulating Hormone 0.52 uIU/mL (0.55-4.78)
[2024-05-02 11:26] LABS: Bilirubin,Total 0.4 mg/dL (0.3-1.2)
[2024-05-02 12:28] LABS: Glucose Estimated Average 154 mg/dL (80-131)
[2024-05-02 14:04] LABS: HCG Qualitative,Urine Negative
--- NOTE | 2024-05-02 15:58 | RESP.EEG ---
eeg completed and ready for review
--- NOTE | 2024-05-02 16:19 | ESPR_ITS ---
<Statement entered by Vern Morales DO - 05/02/24 17:51> Senior attestation: Patient was examined and case was reviewed with team including attending physician. Note reviewed, I agree with most of its contents and agree with the patient's care. MRI and EEG ordered, pending neurology recommendations. Vern Morales DO PGY-3 Documentation for date of: 05/02/24 Subjective Subjective Interval history: No acute overnight events. Patient seen with family at bedside. Patient was AAO x 3 when seen and evaluated. Patient denies headache, fever, chills, chest pain, palpitation, shortness of breath, dizziness, nausea, vomiting, diarrhea, or constipation. She endorsed feeling confused at home and states that this has happened in the the past when she was using meth. Denies any recent meth or marijuana use. Found to be marijuana positive on U tox. CT brain was negative. MRI was ordered to rule out possible seizures. EEG was also ordered. Neurology was consulted who recommended patient is medically clear for d/c upon negative MRI results. Exam Vital Signs Temp Pulse Resp BP Pulse Ox O2 Del Method 96.9 F 80 15 140/80 H 99 Room Air 05/02/24 12:00 05/02/24 12:00 05/02/24 12:00 05/02/24 12:00 05/02/24 12:00 05/02/24 12:00 Narrative Exam Constitutional: Calm, conversational well-developed, well-nourished, in no acute distress, lying in bed with daughter at bedside. HEENT: NCAT, EOMI, reactive round pupils b/l, patent nares b/l, moist mucous membranes, on. rooom air Lung: CTAB, no wheezing, no rhonchi, no crackles Heart: Regular S1S2, no murmurs, gallops, or rubs Abdomen: Soft, non-distended, non-tender,++bowel sounds . Extremities: No cyanosis, clubbing, no edema of b/l legs, LE pulses present b/l Neurologic: No focal sensory or motor deficits noted, AOx3, appropriate affect Skin: Warm, dry, no lesions or rashes noted Objective Labs 05/03/24 04:49 05/03/24 04:49 Labs: Laboratory Results - last 24 hr 05/01/24 05/02/24 05/02/24 18:00 04:30 13:20 WBC 10.3 9.7 RBC 4.91 4.30 Hgb 13.9 12.3 Hct 40.8 35.8 L MCV 83 83 MCH 28.3 28.6 MCHC 34.1 34.4 RDW Std Deviation 37.7 38.5 Plt Count 330 D 295 D Neut % (Auto) 68 77 Lymph % (Auto) 24 17 [place] % (Auto) 6 4 Eos % (Auto) 2 1 Baso % (Auto) 1 0 Neut # (Auto) 7.0 7.5 Lymph # (Auto) 2.5 1.6 Geary # (Auto) 0.6 0.4 Eos # (Auto) 0.2 0.1 Baso # (Auto) 0.1 0.0 Immature Gran # (Auto) 0.03 H 0.03 H Absolute Nucleated RBC 0.00 0.00 Immature Gran % 0 0 Nucleated RBC % 0 0 Sodium 136 137 Potassium 3.5 3.4 Chloride 102 104 Carbon Dioxide 22.0 23.6 Anion Gap 12 9 BUN 15 13 Creatinine 0.9 0.6 Estim Creat Clear Calc 76.0 113.9 eGFR > 60 > 60 BUN/Creatinine Ratio 17 22 H Glucose [address] Glu mg/dL 154 H Hemoglobin A1c 7.0 H Calculated Osmolality 276 274 L Calcium 10.3 9.6 Corrected Calcium 10.3 H 9.6 Magnesium 1.4 L Total Bilirubin 0.3 0.4 AST 18 16 ALT 19 15 Alkaline Phosphatase 129 H 107 D Total Creatine Kinase 51 Troponin I < 0.002 Total Protein 7.8 6.9 Albumin 4.8 4.2 D Globulin 3.0 2.7 Albumin/Globulin Ratio 1.6 1.6 TSH 0.52 L Ur Collection Type Clean Catch Urine Color Lt-Yellow Urine Clarity Clear Urine pH 6.5 Ur Specific [place] 1.029 Urine Protein Trace Urine Glucose (UA) 4+ A Urine Ketones Negative Urine Blood Negative Urine Nitrite Negative Urine Bilirubin Negative Urine Urobilinogen (Auto) 2.0 Ur Leukocyte Esterase Negative Urine RBC 0 Urine WBC 0 Ur Squamous Epith Cells 1 Urine Bacteria None Urine HCG, Qual Negative Urine Opiates Screen Negative Urine Fentanyl Screen Negative Ur Barbiturates Screen Negative U Amphetamin/Meth Scrn Negative U Benzodiazepines Scrn Negative U Cocaine Metab Screen Negative U Marijuana (THC) Screen Positive A Ethyl Alcohol < 3.0 Quality Measures Quality Measures none Assessment & Plan Assessment Current Active Medications: Generic Name Dose Route Start Last Admin Trade Name Freq PRN Reason Stop Dose Admin Acetaminophen 650 mg 05/01/24 22:51 Acetaminophen 325 Mg Tablet PO 05/31/24 22:50 Q6H PRN Mild Pain 1-3 or Fever >100.4 Dextrose 25 ml 05/01/24 22:58 Dextrose 50%-Water Inj 50 Ml Syringe IV 05/31/24 22:57 Q15MIN PRN BG 50-70 responsive npo pt Dextrose 50 ml 05/01/24 22:58 Dextrose 50%-Water Inj 50 Ml Syringe IV 05/31/24 22:57 Q15MIN PRN BG <50 OR BG <70 & pt unresponsive Glucagon 1 mg 05/01/24 22:58 Glucagon Inj 1 Mg Vial IM Q15MIN PRN BG <70, and no IV access Haloperidol Lactate 2 mg 05/01/24 23:03 Haloperidol Lact Inj 5 Mg/Ml Vial IV 05/06/24 23:02 Q4HR PRN AGITATION (SEVERE) Heparin Sodium (Porcine) 5,000 unit 05/01/24 23:00 05/02/24 14:48 Heparin Sod Inj 5000 Unit/Ml Vial SC 05/15/24 22:59 5,000 unit Q8HR HANSA Administration Insulin Human Lispro 0 unit 05/02/24 00:00 05/02/24 12:00 Insulin Lispro (Admelog) 1 Unit/0.01 Ml Unit SC 06/01/24 00:00 Not Given Q6HR HANSA Protocol Lisinopril 20 mg 05/02/24 09:00 05/02/24 09:52 Lisinopril 20 Mg Tablet PO 06/01/24 08:59 20 mg QDAY HANSA Administration Lorazepam 2 mg 05/01/24 23:05 Lorazepam 2 Mg/Ml Vial IVP 05/06/24 23:04 Q5MIN PRN SEIZURES Breakthrough Ondansetron HCl 4 mg 05/01/24 22:51 Ondansetron Inj 2 Mg/Ml Inj 2 Ml IV 05/31/24 22:50 Q6H PRN NAUSEA OR VOMITING Protocol Pantoprazole Sodium 40 mg 05/02/24 09:00 05/02/24 09:53 Pantoprazole 40 Mg Tablet PO 06/01/24 08:59 40 mg QDAY HANSA Administration Plan A 48-year-old female with a past medical history of diabetes mellitus type 2 insulin-dependent, hypertension, chronic back pain, pancreatitis, and polysubstance use disorder on marijuana and methamphetamine was admitted for acute encephalopathy. #Acute encephalopathy, resolving #Polysubstance use hx Differential diagnosis: Seizures versus toxic from polysubstance use Seizure likely in the setting of bodily twitching and tremors noted by family. Possible component of polysubstance use contributed to patient's altered mentation, patient endorses marijuana use but denies active use of methamphetamines at the moment. Patient's symptoms of confusion are nearly resolved. She is back towards baseline ANO x 3. Patient passed nurse bedside swallow. U-Tox positive for marijuana, past admission positive for methamphetamine use. Plan: -Dr Collier neurologist was consulted; recommended patient is medically clear for discharge from neurology standpoint. -EEG ordered to rule out possible seizures -Ativan 2 mg IVP Q5min PRN-seizure breakthrough -Haloperidol 2 mg IV Q4HR PRN -Seizure precautions -Aspiration precautions -Neuro Checks 4QHR -cardiac diet -CBC, CMP #DM type 2 insulin dependent (A1C 7.0%) Glucose on initial presentation 177. Per chart review, A1c on 07/10/2020 was 12.4. Plan: -Sliding Scale Lispro Q6HR -Bedside glucose check -hypoglycemic protocol #HTN Patient has a history of hypertension. Plan -Lisinopril 20 mg PO QDay Health Maintenance: Disp: Pt is currently admitted to floors for further management of acute encephalopathy, MRI ordered?results negative. Neurology consulted. FEN: Cardiac DVT: on subQ heparin Code: Full code Discussed case with my attending Dr. Fleming and senior Andrew, PGY-3. Thank you, Ursula Walker, PGY-2 Attending Provider Attestation/Addendum Face to face evaluation was performed by me. I have personally seen and examined the patient. I discussed the assessment and plan with the entire medicine team. I reviewed available medical records, imaging studies, laboratory results. I agree with the above subjective data, objective findings, assessment and plan except as corrected by me or noted below Acute encephalopathy, likely metabolic due to hypoglycemia or polypharmacy, buprenorphine, [place], gabapentin history of type 2 diabetes History of hypertension History of polysubstance abuse on buprenorphine patch following up with pain specialist looks like -Stroke ruled out, neurology consulted appreciate recommendations -Monitor closely mental status, plan to discharge tomorrow Continue current medications- Patient to stay away from polysubstance abuse
[2024-05-02] MEDS: INSULIN LISPRO (AdmeLOG) 1 UNIT/0.01 ML UNIT SC (21:47)
--- NOTE | 2024-05-02 23:03 | PD.NEUROCONS ---
History of Present Illness Data of Consult Requesting Physician: Michael Trejo MD Primary Care Provider: ANDREA Elder Consult Narrative History of present illness: Patient is a 48-year-old female with diabetes mellitus type 2, hypertension, chronic back pain, pancreatitis, and polysubstance use presented to the ER with a chief complaint of altered mental status with a single episode of confusion and tremors. Denies any headache or extremity weakness, dizziness, imbalance or falls. Denied a postictal state or eyes rolling back, or bowel or bladder incontinence. No similar episodes before. Workup in the ER: Vitals: afebrile, HR 128, RR 21, BP 191/124, SpO2 98 RA Labs: CBC: unremarkable, CMP: glucose 177, Ca 10.3, Mg 1.4, Alkaline phosphatase 129, CK 51, troponin <0.002 UA negative Utox (05/01/2024): Positive for THC;previously positive to meth (04/20/24) EKG Sinus tachycardia Imaging: Cxr (05/01/2024) Poor inspiratory effort Head CT (05/01/2024): Negative for acute hmorrhage, mass effect or midline shift Medication: Ativan 2 mg IVP X1, Haloperidol 5 mg IV X1, Mg sulfate 2 mg IV Patient got admitted to Telemetry for further up and mgt and Neurology was consulted. cc:: cc: Michael Trejo MD Review of Systems Review of Systems Systems Reviewed: All systems reviewed, normal except as documented Past Medical History Past Medical History NEUROLOGIC: Negative Neurological Disorders or Seizures CARDIAC: Positive Cardiac Disorders, Hypercholesterolemia and Edema; Negative Congestive Heart Failure, Cellulitis or Varicose Veins RESPIRATORY: Positive Asthma and Pneumonia; Negative Chronic Obstructive Pulmonary Disease (COPD), Bronchitis, Tuberculosis or Sleep Apnea GASTROINTESTINAL: Positive Gastrointestinal Disorders, Pancreatitis, Gall Bladder Disease, Hiatal Hernia and Gastroesophageal Reflux Disease; Negative Hepatitis, Ulcer or Colorectal Cancer GENITOURINARY: Negative Genitourinary Disorders or Renal Disease REPRODUCTIVE: Positive Previous Pregnancies; Negative Breast Cancer, Genital Herpes, Gonorrhea, Pelvic Inflammatory Disease or Syphilis MUSCULOSKELETAL: Negative Musculoskeletal Disorders or Bone Cancer ENDOCRINE: Positive Endocrine Disorders and Diabetes Mellitus Type 2; Negative Diabetes Mellitus Type 1, Hyperthyroidism or Hypothyroidism HEMATOLOGIC: Positive Blood Disorders and Anemia; Negative Sickle Cell Disease PSYCHO/SOCIAL: Positive Anxiety OTHER HISTORY: Positive Hospitalization and Blood Transfusions; Negative Autoimmune Disease, Shingles, Falls, Blood Transfusion Reaction, Anesthesia Reactions, Organ Transplant, Chemotherapy, MRSA, VRSA, Vancomycin-Resistant Enterococci, Human Immunodeficiency Virus (HIV), Chicken Pox, Measles, Mumps, Rubella (Hungarian Measles), Pertussis, Clostridium Difficile, Cancer, Breast Cancer, Cervical Cancer, Colorectal Cancer, Lung Cancer or Ovarian Cancer Family History FAMILY HISTORY: Positive Family Psychiatric Problems, Family Respiratory Disorders, Family Cardiac Disorders, Family Cancer and Family Surgery; Negative Family Gastrointestinal Problems or Family Anesthesia Reaction Surgical History SURGICAL: Positive Abdominal Surgery and Section; Negative Cardiac Surgery, Pacemaker, Endocrine Surgery, Thyroidectomy, Ear Surgery, Nephrectomy, Joint Replacement, Neurologic Surgery, Mastectomy or Organ Transplant Social History SMOKING STATUS: Never smoker SECOND HAND EXPOSURE: No Meds Home Medications and Allergies Home Medications ?Medication ?Instructions ?Recorded ?Confirmed ?Type atorvastatin 20 mg tablet 40 mg PO QDAY 04/17/22 05/01/24 History metformin 1,000 mg tablet 1,000 mg PO BID 04/17/22 05/01/24 History omeprazole 20 mg capsule,delayed 40 mg PO QAM 04/17/22 05/01/24 History release hydrochlorothiazide 12.5 mg tablet 12.5 mg PO QDAY 05/01/24 05/01/24 History lisinopril 20 mg tablet 20 mg PO QDAY 05/01/24 05/01/24 History semaglutide 2 mg/dose (8 mg/3 mL) 2 mg subcut QWEEK 05/01/24 05/01/24 History subcutaneous pen injector (Ozempic) buprenorphine 5 mcg/hour weekly 5 mcg topical QWEEK 05/02/24 05/02/24 History transdermal patch (Butrans) gabapentin 300 mg capsule 600 mg PO TID 05/02/24 05/02/24 History insulin lispro protamine-lispro 15 unit subcut QPM 05/02/24 05/02/24 History 100 unit/mL (75-25) subcutaneous pen (Humalog Mix 75-25 KwikPen) insulin lispro protamine-lispro 20 unit subcut QAM 05/02/24 05/02/24 History 100 unit/mL (75-25) subcutaneous pen (Humalog Mix 75-25 KwikPen) Allergies Allergy/AdvReac Type Severity Reaction Status Date / Time No Known Allergies Allergy Verified 05/01/24 23:13 Exam - Neurology Vital Signs Temp Pulse Resp BP Pulse Ox O2 Del Method 97.3 F 78 16 119/88 H 96 Room Air 05/02/24 20:00 05/02/24 20:00 05/02/24 20:00 05/02/24 20:00 05/02/24 20:00 05/02/24 16:00 Narrative Exam GENERAL APPEARANCE: Well hydrated, well-nourished in no acute distress. HEENT: Normocephalic, atraumatic, extraocular movements intact. Pupils: Equal reacting to light and accommodation NECK: Supple, no JVD or bruits. CARDIOVASULAR: Heart: S1, S2 heard, regular without S3-S4 or murmur no rubs or gallops. LUNGS/CHEST: Clear to auscultation bilaterally. No rails, rhonchi, or wheezing. Normal inspection. ABDOMEN: Soft, nontender, with normal bowel sounds. No pulsatile masses. No rebound, rigidity, or guarding. Normal inspection and palpation. EXTREMITIES: Normal inspection and palpation. No edema, clubbing or cyanosis. SKIN: Warm and dry without rashes. Normal inspection. MUSCULOSKELETAL: No cervical, thoracic, lumbar or midline bony tenderness. Normal inspection. NEURO: Alert, awake and oriented x3. Cranial nerves: II through XII grossly intact. Speech and language: Normal with no dysarthria or dysphasia. Motor system: Tone and bulk: Normal: Strength: 5 out of 5 in all 4 extremities; No pronator drift noted. Deep tendon reflexes: 2+ bilaterally symmetrical. Plantar reflex: Downgoing bilaterally. Sensory system: Intact to all modalities of sensation bilaterally. Coordination: Intact to [id number] and loeu-ekuz-hrmc test bilaterally. No ataxia, no dysmetria, or dysdiadochokinesia noted. No intention tremors noted. Gait: Normal. Toe, heel, tandem walk all are normal. Romberg: Negative. No signs of meningeal irritation noted. PSYCHIATRIC: Normal mood and affect. Results Labs 05/02/24 04:30 05/02/24 04:30 Labs: Short CBC 05/02/24 Range/Units 04:30 WBC 9.7 (3.6-11.0) Thou/mm3 Hgb 12.3 (12.0-16.0) g/dL Hct 35.8 L (36.0-46.0) % Plt Count 295 D (140-440) Thou/mm3 BMP 05/02/24 04:30 Sodium 137 Potassium 3.4 Chloride 104 Carbon Dioxide 23.6 BUN 13 Creatinine 0.6 Glucose 116 H D Calcium 9.6 Liver Function 05/02/24 Range/Units 04:30 Total Bilirubin 0.4 (0.3-1.2) mg/dL AST 16 (0-34) U/L ALT 15 (10-49) U/L Alkaline Phosphatase 107 D (46-116) U/L Albumin 4.2 D (3.5-5.0) gm/dL Assessment & Plan Assessment and plan (1) AMS (altered mental status): Status: Acute Assessment and plan: With confusion, tremors and altered mental status most likely related to hypoglycemia. Reassurance given to the patient regarding the MRI brain and follow-up with EEG. (2) Diabetes mellitus: Status: Chronic Assessment and plan: Advised better control of diabetes (3) Hypertension: Status: Acute Assessment and plan: continue with home meds.
[2024-05-03] VITALS (8 sets, daily range): BP systolic 100–122; BP diastolic 58–79; PULSE 77–95; RESP 14–97; TEMP 36.1–36.3; O2SAT 97–99
[2024-05-03] MEDS: HEPARIN SOD INJ 5000 UNIT/ML VIAL SC (05:43)
[2024-05-03 06:17] LABS: Basophils # (Auto) 0.1 Thou/mm3 (0.0-0.2); Basophils % (Auto) 1 % (0-2.5); Eosinophils # (Auto) 0.2 Thou/mm3 (0.0-0.5); Eosinophils % (Auto) 2 % (0-10); Hematocrit 37.7 % (36.0-46.0); Hemoglobin 12.7 g/dL (12.0-16.0); Immature Granulocytes % (Auto) 0 % (0-0); Immature Granulocytes Auto 0.02 Thou/mm3 (0.00-0.00); Lymphocytes % (Auto) 29 % (10-50); Mean Corpuscular HGB Conc 33.7 g/dl (31.0-37.0); Mean Corpuscular Hemoglobin 28.5 pg (25.0-35.0); Mean Corpuscular Volume 85 fL (80-100); Monocytes # (Auto) 0.5 Thou/mm3 (0.0-0.8); Monocytes % (Auto) 8 % (0-12); Neutrophils # (Auto) 4.3 Thou/mm3 (1.8-7.7); Neutrophils % (Auto) 61 % (37-80); Nucleated Red Blood Cell % 0 /100 WBC (0); Platelet Count 270 Thou/mm3 (140-440); RDW Standard Deviation 38.9 fL (36.4-46.3); Red Blood Count 4.46 Miln/mm3 (4.00-5.20); White Blood Count 7.1 Thou/mm3 (3.6-11.0)
[2024-05-03 06:24] LABS: Alanine Aminotransferase 13 U/L (10-49); Albumin, Serum 4.4 gm/dL (3.5-5.0); Albumin/Globulin Ratio 1.7 (1.2-2.2); Alkaline Phosphatase 98 U/L (46-116); Anion Gap 6 (7-16); Aspartate Amino Transferase 13 U/L (0-34); BUN/Creatinine Ratio 16 Ratio (12-20); Bilirubin,Total 0.3 mg/dL (0.3-1.2); Blood Urea Nitrogen 13 mg/dL (9-23); Calcium 9.6 mg/dL (8.3-10.6); Calcium (Corrected) 9.6 mg/dL (8.5-10.1); Carbon Dioxide 26.3 mMol/L (20.0-31.0); Chloride 103 mMol/L (98-107); Creatinine (Component) 0.8 mg/dL (0.6-1.3); Estimated Creatinine Clearance 85.4 mL/min (>60); Globulin 2.6 gm/dL (2.3-3.5); Glucose 126 mg/dL (74-106); Osmolality,Calculated 272 (275-295); Potassium 4.5 mMol/L (3.4-5.1); Sodium 135 mMol/L (136-145); eGFR > 60 See Note
[2024-05-03 07:09] LABS: Glucose Estimated Average 154 mg/dL (80-131)
[2024-05-03] MEDS: INSULIN LISPRO (AdmeLOG) 1 UNIT/0.01 ML UNIT SC ×2 (07:40→12:22)
[2024-05-03] MEDS: PANTOPRAZOLE 40 MG TABLET PO (08:22)
[2024-05-03] MEDS: Lisinopril 20 MG TABLET PO (08:22)
--- NOTE | 2024-05-03 12:34 | ESDS_ITS ---
<Statement entered by Vern Morales DO - 05/03/24 15:00> Senior attestation: Patient was examined and case was reviewed with team including attending physician. Note reviewed, I agree with most of its contents and agree with the patient's care. Vern Morales DO PGY-3 Planned Discharge Date 05/03/24 DS: Providers Provider Date of admission: 05/01/24 22:51 Primary care physician: ANDREA Elder Admitting Provider: Michael Trejo MD Attending Provider on Admission: Michael Trejo MD Consults: 05/01/24 23:04 Consult to Neurology / Tele-Neurology Routine Comment: possible witnessed seizure-videoon daughter'sphone Consulting Provider: Surjit Collier Attending Provider on DC: Enmanuel Fleming MD Discharging Provider: Enmanuel Fleming MD DS: Diagnosis Problem List Completed Was Problem List Reviewed/Reconciled?: Yes Hospital Course Hospital Course Hospital course: The patient is a 48-year-old female with past medical history of hypertension, type II DM, chronic back pain, pancreatitis who presented to the ED on 05/02/2024 with complaints of altered mental status, confusion and seeming bilateral tremors. There was no history of tonic-clonic seizures or postictal state or loss of bladder/bowel control. Patient reported that she has had a similar episode in the past but this was drug related and secondary to meth use. She reports that before presentation, she had noticed that her blood glucose was well, about 40. In the ED, patient was tachycardic with a heart rate of 128, blood pressure was elevated at 191 the patient was saturating 98% on room air. Labs remarkable for glucose of 177. UA was negative and U tox was positive for THC. EKG showed sinus tachycardia, head CT was negative. The patient was admitted for further workup of acute encephalopathy. Neurology was consulted and an MRI brain was ordered which showed single punctate focus of increased signal in the right frontal white matter who was negative for stroke. Patient was evaluated by neurologist Dr Collier who reassured regarding MRI brain findings and follow-up EEG and suspected the patient's presentation was most likely related to hypoglycemia. Today, patient states clinically and hemodynamically stable and medically cleared for discharge. She is back to her baseline mentation. Patient's medications reviewed and polypharmacy is also suspicion for which gabapentin was reduced to 400 mg 3 times daily. Patient was recommended to follow-up with a primary care provider within 1 week of discharge as well as her pain doctor to review all her medications. She is also recommended to keep her blood glucose checks and hold the insulin with meals if blood glucose is lower than 100. #Acute encephalopathy #Polypharmacy #Hypoglycemia #History of type II DM #History of hypertension #History of chronic back pain Case was discussed with senior resident Dr Morales and attending physician, Dr Lonnie Lal MD PGY-1 Time Spent with Patient Time attestation: Total time spent providing and/or coordinating discharge services: Exam Vital Signs Temp Pulse Resp BP Pulse Ox O2 Del Method 96.9 F 90 16 119/69 99 Room Air 05/03/24 11:39 05/03/24 11:39 05/03/24 11:39 05/03/24 11:39 05/03/24 11:39 05/03/24 11:39 Narrative Exam GENERAL: AAOX3 NEURO: [employer]IER grossly intact, moves extremities x4 HEENT: Moist mucosa. Eyes open, symmetrical, & clear CARDIO: No chest pain on palpation. Heart RRR, no obvious murmurs PULM: No noted coughing/dyspnea. Lungs CTA B/L GI: Abdomen soft, nondistended, no pain on palpation. BSx4 URO/SENIOR SSIS DEVELOPER:: No further abnormalities noted. SKIN/MSK/EXT: No wounds/rashes/edema/amputations, no pain on palpation. Pedal pulses present B/L Discharge Plan Plan Patient Disposition: HOME (Self Care) Care Plan Goals: Follow up with your primary care provider within one week of discharge We have reduced your gabapentin dose to 400mg three times daily Avoid taking [place] unless necessary, follow up with your pain doctor to review your medications Keep your blood sugar checks regularly and hold insulin with meals if blood sugar is less than 100 Prescriptions/Referrals Prescriptions/Med Rec: New gabapentin 400 mg capsule 400 mg PO TID 14 Days Qty: 42 0RF Continued atorvastatin 20 mg tablet 40 mg PO QDAY Patient Comments: TAKE 1 TABLET BY MOUTH ONCE DAILY metformin 1,000 mg tablet 1,000 mg PO BID Patient Comments: TAKE 1 TABLET BY MOUTH TWICE DAILY omeprazole 20 mg capsule,delayed release(DR/EC) 40 mg PO QAM Patient Comments: TAKE 1 CAPSULE BY MOUTH ONCE DAILY AT NIGHT lisinopril 20 mg Tablet 20 mg PO QDAY hydrochlorothiazide 12.5 mg Tablet 12.5 mg PO QDAY Ozempic 2 mg/dose (8 mg/3 mL) Pen Injector 2 mg SUBCUT QWEEK insulin lispro protamin-lispro [Humalog Mix 75-25 KwikPen] 100 unit/mL (75-25) insulin pen 20 unit SUBCUT QAM Patient Comments: INJECT 20 UNITS SUBCUTANEOUSLY IN THE MORNING AND 15 UNITS AT NIGHT buprenorphine [Butrans] 5 mcg/hour patch weekly 5 mcg TOPICAL QWEEK Patient Comments: APPLY 1 PATCH TOPICALLY TO SKIN ONCE A WEEK insulin lispro protamin-lispro [Humalog Mix 75-25 KwikPen] 100 unit/mL (75-25) insulin pen 15 unit SUBCUT QPM Discontinued gabapentin 300 mg capsule 600 mg PO TID Patient Comments: TAKE 2 CAPSULES BY MOUTH THREE TIMES DAILY Referrals: Beth Myers, CHILD LIFE THERAPIST [Primary Care Provider] - Patient/Caregiver Discharge Instructions Discharge Activity: activity as tolerated Education Materials: Hypoglycemia (Low Blood Sugar), ED ALOC, ED Confusion Print Language: Croatian Stand Alone Forms: Donna Award Info., Patient Portal Info Letter Discharge Order Discharge Orders: Discharge (Routine); Ordered 05/03/24 Ordered By: Andrea Lal Quality Discharge Quality Measures VTE prophylaxis
--- NOTE | 2024-05-03 13:47 | PD.ADDDSCHGE ---
Addendum Discharge Addendum Date of report being addended: 05/03/24 Narrative: Face to face evaluation was performed by me. I have personally seen and examined the patient. I discussed the assessment and plan with the entire medicine team. I reviewed available medical records, imaging studies, laboratory results. I agree with the above subjective data, objective findings, assessment and plan except as corrected by me or noted below Acute encephalopathy, likely metabolic due to hypoglycemia or polypharmacy, buprenorphine, [place], gabapentin history of type 2 diabetes History of hypertension History of polysubstance abuse on buprenorphine patch following up with pain specialist looks like -Stroke ruled out, neurology was consulted, greatly appreciate recommendations - her encephalopathy was probably from relative hypoglycemia and also could be fromPolypharmacy on bupropion patch [place] as well as gabapentin 600 mg 3 times daily. Discussed with patient as well as her at bedside. Recommend to decrease gabapentin to 400 mg 3 times daily, follow-up with her doctor after discharge as soon as possible. Pain management per the doctor. Risk factor modification, avoid
== END 2024-05-03 13:07 | disposition home or self-care (01) | DRG 52 ==
LOC: SERX 18:14 → SERHOLD 23:49 → S2NX 05-02 00:33
PROVIDERS: Student in an Organized Health Care Education/Training Program; Admitting Provider Student in an Organized Health Care Education/Training Program; Emergency Provider Emergency Medicine; PCP Registered Nurse Community Health; Visit Provider Student in an Organized Health Care Education/Training Program
DX: G92.8 Other toxic encephalopathy (principal); G93.41 Metabolic encephalopathy; I10 Essential (primary) hypertension; E11.649 Type 2 diabetes mellitus with hypoglycemia without coma; G89.29 Other chronic pain; R56.9 Unspecified convulsions; M54.9 Dorsalgia, unspecified; F15.10 Other stimulant abuse, uncomplicated; F12.10 Cannabis abuse, uncomplicated; T40.495A Adverse effect of other synthetic narcotics, initial encounter; T42.6X5A Adverse effect of other antiepileptic and sedative-hypnotic drugs, initial encounter; Z79.4 Long term (current) use of insulin
CPT/HCPCS: 36415; 70450; 70553; 71045; 80053; 80307; 80320; 81001; 81025; 82550; 83036; 83735; 84443; 84484; 85025; 93005; 95816; 96361; 96365; 96366; 96372; 96374; 96375; 99285; A9579; J1630; J1643; J1815; J2060; J2405; J3475; J7030; A9270; G0480; J1644

== ENCOUNTER 2024-10-01 17:52 | Emergency (ER) | payer MEDICAID, SELFPAY ==
[2024-10-01 17:53] VITALS: BMI 22.8
[2024-10-01 18:59] VITALS: BP 139/89; PULSE 92; RESP 18; TEMP 36.8; O2SAT 99
--- NOTE | 2024-10-01 19:09 | XR_ITS ---
Examination: CT brain head without contrast. 2-D sagittal coronal reconstructions Date and time of exam:October 01, 2024 1923 hrs. Indications: Syncopal episode today CTDI: vol (mGy):46.7 DLP: (mGycm):922 Technique: Multiple CT axial sections of the brain have been obtained, 5 mm slice thickness. Contrast has not been administered. 2-D sagittal, coronal reconstructions have been obtained Low dose protocols were performed. One or more of the following dose reduction techniques were used; automated exposure control, adjustment of the mA and/or KV according to patient size, use of iterative reconstruction technique. Findings: No significant ventricular enlargement. Intra-axial or extra-axial hemorrhage density is not seen. No mass effect or midline shift Basal cisterns are not remarkable. Fourth ventricle is midline. Cranial vault intact. Impression: Negative for acute hemorrhage, mass effect or midline shift Advise clinical correlation follow-up accordingly
[2024-10-01] MEDS: METOCLOPRAMIDE INJ 5 MG/ML VIAL 2 ML 10 MG IM (19:21)
--- NOTE | 2024-10-01 19:21 | PD.EDNV ---
Nausea/Vomit./Diarrhea-RME/HPI General Chief complaint: Nausea/Vomiting/Diarrhea Stated complaint: VOMITING/DIARRHEA X2DAYS Time Seen by Provider: 10/01/24 19:09 Arrival date/time: 10/01/24 17:52 49F with history of DM, HTN, and pancreatitis presents to ED with 2 days of N/V and non-bloody diarrhea since she restarted her Ozempic injection. Patient states she also had a possible syncopal episode yesterday and fell back hitting her head and R elbow. Limitations: no limitations Related Data Home Medications ?Medication ?Instructions ?Recorded ?Confirmed atorvastatin 20 mg tablet 40 mg PO QDAY 04/17/22 05/01/24 metformin 1,000 mg tablet 1,000 mg PO BID 04/17/22 05/01/24 omeprazole 20 mg capsule,delayed 40 mg PO QAM 04/17/22 05/01/24 release hydrochlorothiazide 12.5 mg tablet 12.5 mg PO QDAY 05/01/24 05/01/24 lisinopril 20 mg tablet 20 mg PO QDAY 05/01/24 05/01/24 semaglutide 2 mg/dose (8 mg/3 mL) 2 mg subcut QWEEK 05/01/24 05/01/24 subcutaneous pen injector (Ozempic) buprenorphine 5 mcg/hour weekly 5 mcg topical QWEEK 05/02/24 05/02/24 transdermal patch (Butrans) insulin lispro protamine-lispro 15 unit subcut QPM 05/02/24 05/02/24 100 unit/mL (75-25) subcutaneous pen (Humalog Mix 75-25 KwikPen) insulin lispro protamine-lispro 20 unit subcut QAM 05/02/24 05/02/24 100 unit/mL (75-25) subcutaneous pen (Humalog Mix 75-25 KwikPen) Previous Rx's ?Medication ?Instructions ?Recorded metoclopramide HCl 5 mg tablet 5 mg PO TID PRN nausea and 10/01/24 (Reglan) vomiting #14 tabs Allergies Allergy/AdvReac Type Severity Reaction Status Date / Time No Known Allergies Allergy Verified 10/01/24 17:55 Review of Systems Review of Systems Systems Reviewed: All systems reviewed, normal except as documented Constitutional Constitutional: Reports system reviewed and no additional complaints, except as documented, Denies fever(s) and Denies headache(s) ENT Ears, Nose, Mouth, and Throat: Denies disequilibrium and Denies headache(s) Cardiovascular Cardiovascular: Reports system reviewed and no additional complaints, except as documented, Denies chest pain and Denies dyspnea Respiratory Respiratory: Reports system reviewed and no additional complaints, except as documented, Denies cough and Denies dyspnea Gastrointestinal Gastrointestinal: Reports system reviewed and no additional complaints, except as documented, Reports as per HPI, Denies abdominal pain, Reports diarrhea, Reports nausea and Reports vomiting Integumentary/Breasts Skin/Breast: Reports as per HPI and Reports skin pain Neurologic Neurologic: Reports system reviewed and no additional complaints, except as documented, Denies confusion, Denies disequilibrium and Denies headache(s) Psychiatric Psychiatric: Denies confusion Past Medical History Past Medical History NEUROLOGIC: Negative Neurological Disorders or Seizures CARDIAC: Positive Cardiac Disorders, Hypercholesterolemia and Edema; Negative Congestive Heart Failure, Cellulitis or Varicose Veins RESPIRATORY: Positive Asthma and Pneumonia; Negative Chronic Obstructive Pulmonary Disease (COPD), Bronchitis, Tuberculosis or Sleep Apnea GASTROINTESTINAL: Positive Gastrointestinal Disorders, Pancreatitis, Gall Bladder Disease, Hiatal Hernia and Gastroesophageal Reflux Disease; Negative Hepatitis, Ulcer or Colorectal Cancer GENITOURINARY: Negative Genitourinary Disorders or Renal Disease REPRODUCTIVE: Positive Previous Pregnancies; Negative Breast Cancer, Genital Herpes, Gonorrhea, Pelvic Inflammatory Disease or Syphilis MUSCULOSKELETAL: Negative Musculoskeletal Disorders or Bone Cancer ENDOCRINE: Positive Endocrine Disorders and Diabetes Mellitus Type 2; Negative Diabetes Mellitus Type 1, Hyperthyroidism or Hypothyroidism HEMATOLOGIC: Positive Blood Disorders and Anemia; Negative Sickle Cell Disease PSYCHO/SOCIAL: Positive Anxiety OTHER HISTORY: Positive Hospitalization and Blood Transfusions; Negative Autoimmune Disease, Shingles, Falls, Blood Transfusion Reaction, Anesthesia Reactions, Organ Transplant, Chemotherapy, MRSA, VRSA, Vancomycin-Resistant Enterococci, Human Immunodeficiency Virus (HIV), Chicken Pox, Measles, Mumps, Rubella (Yoruba Measles), Pertussis, Clostridium Difficile, Cancer, Breast Cancer, Cervical Cancer, Colorectal Cancer, Lung Cancer or Ovarian Cancer Family History FAMILY HISTORY: Positive Family Psychiatric Problems, Family Respiratory Disorders, Family Cardiac Disorders, Family Cancer and Family Surgery; Negative Family Gastrointestinal Problems or Family Anesthesia Reaction Surgical History SURGICAL: Positive Abdominal Surgery and Section; Negative Cardiac Surgery, Pacemaker, Endocrine Surgery, Thyroidectomy, Ear Surgery, Nephrectomy, Joint Replacement, Neurologic Surgery, Mastectomy or Organ Transplant Social History SMOKING STATUS: Never smoker SECOND HAND EXPOSURE: No ED Exam General Limitations: Present no limitations General appearance: Present alert and in no apparent distress Head Head exam: Present atraumatic Eye Eye exam: Present normal appearance, PERRL and EOMI ENT ENT exam: Present normal exam, normal oropharynx and mucous membranes moist Neck Neck exam: Present normal inspection, full ROM and trachea midline Chest Chest inspection: Present normal inspection and symmetric chest wall rise Respiratory Respiratory exam: Present normal lung sounds bilaterally Cardiovascular Cardiovascular exam: Present regular rate, normal rhythm and normal heart sounds Abdominal Exam Abdominal exam: Present soft and normal bowel sounds Extremities Exam Extremities exam: Present full ROM Expanded Upper Extremity Exam Elbow exam: Present full ROM and abrasion (R) Back Exam Back exam: Present normal inspection and full ROM Neurological Exam Neurological exam: Present alert, oriented X3 and CN II-XII intact Psychiatric Psychiatric exam: Present normal affect and normal mood Skin Skin exam: Present warm, dry, intact and normal color Course Quality Measures none Orders Category Date Time Status Blood glucose [Bedside Blood Glucose] NOW Care 10/01/24 19:[address] head/brain wo con Stat Exams 10/01/24 19:09 Completed Alcohol, Blood Medical Stat Lab 10/01/24 19:42 Completed CBC Stat Lab 10/01/24 19:42 Completed CMP [Comprehensive Metabolic Panel] Stat Lab 10/01/24 19:42 Completed Drug Screen,Urine Stat Lab 10/01/24 19:48 Completed Lipase Stat Lab 10/01/24 19:42 Completed UA [Urinalysis] Stat Lab 10/01/24 19:48 Completed Metoclopramide Inj [Reglan Inj] Med 10/01/24 19:10 Discontinued 10 mg IM X1 ONE Vital Signs Vital signs: Vital Signs Temperature 98.3 F 10/01/24 18:59 Pulse Rate 92 10/01/24 18:59 Respiratory Rate 18 10/01/24 18:59 Blood Pressure 139/89 H 10/01/24 18:59 Pulse Oximetry (%) 99 10/01/24 18:59 Oxygen Delivery Method Room Air 10/01/24 18:59 O2 at 99% on RA and WNLs Nausea/Vomiting/Diarrhea MDM Narrative MDM Narrative:: 49F with history of DM, HTN, and pancreatitis presents to ED with 2 days of N/V and non-bloody diarrhea since she restarted her Ozempic injection. Patient states she also had a possible syncopal episode yesterday and fell back hitting her head and R elbow. Physical exam reveals healing skin abrasion on R elbow. No tenderness. ROM intact. Normal pupil response and EOM. Neck ROM intact. Gait normal. Patient is afebrile, calm, and alert. BS 152. CT head unremarkable. No leukocytosis. Lipase normal. CMP unremarkable except for mild K, repleted. UA no gross dehydration. Meth positive. PO challenge passed. Likely adverse drug effect. Patient data External records reviewed:: [facility] previous records Clinical information provided by:: patient Social determinants that could affect healthcare access:: substance use Patient has the following chronic illnesses:: DM, HTN, and pancreatitis How is presenting disease/condition affected by chronic disease/condition?: exacerbated by Evaluation data The following diagnostics were reviewed and interpreted by me:: lab results and radiology exam(s) Lab and/or radiology exams considered but not ordered:: ordered Interpretation Summary: above Medications / Prescriptions Medications / Prescriptions considered but not ordered:: ordered Medication administrations:: Medication Administration History Discontinued Medications Metoclopramide HCl (Metoclopramide Inj 5 Mg/Ml Vial 2 Ml) 10 mg IM X1 ONE; Protocol Stop: 10/01/24 19:11 Last Admin: 10/01/24 19:21 Dose: 10 mg Documented By: EE above Consultations Consultation(s) initiated? (list below): No Diagnosis Nausea Differential Diagnosis: traveler's diarrhea, food poisoning, gastroenteritis, clostridium difficile infection, drug-induced nausea and vomiting, dehydration and other (DKA, CHI, brain bleed, adverse drug effect) Most likely diagnosis given after review of the tests above:: adverse drug effect Admission Indicated Admission indicated?: not indicated Admission Request Was there a request for admission?: No Disposition Plan Disposition Plan: Discharge Discharge Attestation Discharge Attestation: The patient and all family members were given an opportunity to ask questions and understood the discharge instructions. Discharge instructions specifically effects, indications for sooner follow up or return to the emergency department, and the expected course of current diagnosis. Patient condition: Stable Discharge Plan Plan Patient Disposition: HOME (Self Care) Disposition Comment: Stable Prescriptions/Referrals Prescriptions/Med Rec: New metoclopramide HCl [Reglan] 5 mg tablet 5 mg PO TID PRN (Reason: nausea and vomiting) Qty: 14 0RF No Action atorvastatin 20 mg tablet 40 mg PO QDAY Patient Comments: TAKE 1 TABLET BY MOUTH ONCE DAILY metformin 1,000 mg tablet 1,000 mg PO BID Patient Comments: TAKE 1 TABLET BY MOUTH TWICE DAILY omeprazole 20 mg capsule,delayed release(DR/EC) 40 mg PO QAM Patient Comments: TAKE 1 CAPSULE BY MOUTH ONCE DAILY AT NIGHT lisinopril 20 mg Tablet 20 mg PO QDAY hydrochlorothiazide 12.5 mg Tablet 12.5 mg PO QDAY Ozempic 2 mg/dose (8 mg/3 mL) Pen Injector 2 mg SUBCUT QWEEK insulin lispro protamin-lispro [Humalog Mix 75-25 KwikPen] 100 unit/mL (75-25) insulin pen 20 unit SUBCUT QAM Patient Comments: INJECT 20 UNITS SUBCUTANEOUSLY IN THE MORNING AND 15 UNITS AT NIGHT buprenorphine [Butrans] 5 mcg/hour patch weekly 5 mcg TOPICAL QWEEK Patient Comments: APPLY 1 PATCH TOPICALLY TO SKIN ONCE A WEEK insulin lispro protamin-lispro [Humalog Mix 75-25 KwikPen] 100 unit/mL (75-25) insulin pen 15 unit SUBCUT QPM Referrals: Cam Johnson MD [Primary Care Provider] - In 1 week Problem List Clinical Impression: Adverse drug effect Patient/Caregiver Discharge Instructions Education Materials: ED Drug Reaction, Other Additional Instructions: Please follow-up with PCP within 24-48 hours and return immediately if symptoms worsen. Keep hydrated. Advance diet as tolerated. Print Language: Spanish Stand Alone Forms: Patient Portal Info Letter PA/ENGRAVER APPRENTICE DECORATIVE Supervising Physician PA/ENGRAVER APPRENTICE DECORATIVE Supervising Physician: Dr. Joseph
[2024-10-01 20:17] VITALS: BP 135/78; PULSE 96; RESP 18; TEMP 36.9; O2SAT 100
[2024-10-01 20:46] LABS: Collection Type, Urine Clean Catch
[2024-10-01 20:57] LABS: Basophils # (Auto) 0.1 Thou/mm3 (0.0-0.2); Basophils % (Auto) 1 % (0-2.5); Eosinophils # (Auto) 0.2 Thou/mm3 (0.0-0.5); Eosinophils % (Auto) 2 % (0-10); Hematocrit 44.3 % (36.0-46.0); Hemoglobin 14.8 g/dL (12.0-16.0); Immature Granulocytes % (Auto) 0 % (0-0); Immature Granulocytes Auto 0.03 Thou/mm3 (0.00-0.00); Lymphocytes # (Auto) 2.6 Thou/mm3 (1.0-4.8); Lymphocytes % (Auto) 26 % (10-50); Mean Corpuscular HGB Conc 33.4 g/dl (31.0-37.0); Mean Corpuscular Hemoglobin 28.2 pg (25.0-35.0); Mean Corpuscular Volume 85 fL (80-100); Monocytes # (Auto) 0.6 Thou/mm3 (0.0-0.8); Monocytes % (Auto) 6 % (0-12); Neutrophils # (Auto) 6.5 Thou/mm3 (1.8-7.7); Neutrophils % (Auto) 65 % (37-80); Nucleated Red Blood Cell % 0 /100 WBC (0); Platelet Count 305 Thou/mm3 (140-440); RDW Standard Deviation 39.8 fL (36.4-46.3); Red Blood Count 5.24 Miln/mm3 (4.00-5.20); White Blood Count 9.9 Thou/mm3 (3.6-11.0)
[2024-10-01 21:05] LABS: Bilirubin,Urine Negative (Negative); Blood,Urine Negative (Negative); Clarity,Urine Clear (Clear/Hazy); Color,Urine Lt-Yellow (Lt Yel-Yel); Glucose, Urine 4+ (Negative); Ketones,Urine Negative (Negative); Leukocyte Esterase,Urine Negative (Negative); Nitrite,Urine Negative (Negative); Protein,Urine Negative (Neg - Trace); RBC,Urine 2 /hpf (0-3); Specific Gravity,Urine 1.035 (1.001-1.035); Squamous Epithelial Cell,Urine 2 /hpf (0-5); Urobilinogen,Urine Negative mg/dL (0.0-1.0); WBC,Urine 1 /hpf (0-5)
[2024-10-01 21:32] LABS: Amphetamine/Methamp Scrn,U Positive (Negative); Barbiturate Screen,Urine Negative (Negative); Benzodiazepines Screen,Urine Negative (Negative); Benzoylecgonine Screen, Ur Negative (Negative); Fentanyl Screen,Urine Negative (Negative); Opiate Screen,Urine Positive (Negative); THC Screen,Urine Negative (Negative)
[2024-10-01 21:32] LABS: Alanine Aminotransferase 15 U/L (10-49); Albumin/Globulin Ratio 1.6 (1.2-2.2); Alcohol, Blood Medical < 3.0 mg/dL (0-10.0); Alkaline Phosphatase 110 U/L (46-116); Anion Gap 8 (7-16); Aspartate Amino Transferase 19 U/L (0-34); BUN/Creatinine Ratio 13 Ratio (12-20); Bilirubin,Total 0.7 mg/dL (0.3-1.2); Blood Urea Nitrogen 17 mg/dL (9-23); Calcium 9.8 mg/dL (8.3-10.6); Calcium (Corrected) 9.8 mg/dL (8.5-10.1); Carbon Dioxide 29.6 mMol/L (20.0-31.0); Chloride 102 mMol/L (98-107); Creatinine (Component) 1.3 mg/dL (0.6-1.3); Estimated Creatinine Clearance 48.1 mL/min (>60); Globulin 3.1 gm/dL (2.3-3.5); Glucose 212 mg/dL (74-106); Lipase 44 U/L (12-53); Osmolality,Calculated 286 (275-295); Potassium 3.8 mMol/L (3.4-5.1); Sodium 140 mMol/L (136-145); Total Protein 8.1 gm/dL (5.7-8.2); eGFR 51 See Note
== END 2024-10-01 22:03 | disposition home or self-care (01) ==
PROVIDERS: Physician Assistant; Emergency Provider Emergency Medicine; PCP Family Medicine
DX: T50.995A Adverse effect of other drugs, medicaments and biological substances, initial encounter (principal); R11.2 Nausea with vomiting, unspecified; R19.7 Diarrhea, unspecified; E11.9 Type 2 diabetes mellitus without complications; I10 Essential (primary) hypertension
CPT/HCPCS: 36415; 70450; 80053; 80307; 80320; 81001; 83690; 85025; 96372; 99284; J2765; G0480

== ENCOUNTER 2025-02-26 15:41 | Emergency (ER) | payer MEDICAID, SELFPAY ==
--- NOTE | 2025-02-26 16:12 | EKG_ITS ---
[facility] Test Date: 2025-02-26 Pat Name: HANNAH LA Department: Room: - Gender: Female Geriatric Social Worker: : 1975 Requested By: Pal Wray Order Number: [id number] Reading MD: Pal Wray Measurements Intervals [place] Rate: 80 P: 71 [place]: 135 QRS: 46 QRSD: 89 T: 64 QT: 365 QTc: 422 Interpretive Statements SINUS RHYTHM POSSIBLE LEFT ATRIAL ENLARGEMENT [-0.1mV P-WAVE IN V1/V2] LOW QRS VOLTAGE IN PRECORDIAL LEADS [QRS DEFLECTION < 1.0 mV IN CHEST LEADS] SEPTAL MYOCARDIAL INFARCTION , OF INDETERMINATE AGE [40+ ms Q WAVE IN V1/V2] Compared to ECG 05/01/2024 18:51:47 Low QRS voltage now present Myocardial infarct finding now present Sinus tachycardia no longer present /store/S0/[id number]/ecg/[id number].pdf
--- NOTE | 2025-02-26 16:12 | XR_ITS ---
Examination: PA lateral chest 2 views Technique: Upright PA lateral chest 2 views Date and time: February 26, 2025 1834 hrs. Indications: Sudden onset chest pain today. Findings: Normal heart size The lungs are clear. The osseous structures are intact. Impression: No active disease.
[2025-02-26 16:14] VITALS: BP 163/76; PULSE 82; RESP 18; TEMP 36.8; O2SAT 99; BMI 25.0
[2025-02-26 16:42] LABS: Basophils # (Auto) 0.1 Thou/mm3 (0.0-0.2); Basophils % (Auto) 1 % (0-2.5); Eosinophils # (Auto) 0.2 Thou/mm3 (0.0-0.5); Eosinophils % (Auto) 2 % (0-10); Hematocrit 38.2 % (36.0-46.0); Hemoglobin 12.3 g/dL (12.0-16.0); Immature Granulocytes Auto 0.03 Thou/mm3 (0.00-0.00); Lymphocytes # (Auto) 1.8 Thou/mm3 (1.0-4.8); Lymphocytes % (Auto) 17 % (10-50); Mean Corpuscular HGB Conc 32.2 g/dl (31.0-37.0); Mean Corpuscular Hemoglobin 28.7 pg (25.0-35.0); Mean Corpuscular Volume 89 fL (80-100); Monocytes # (Auto) 0.6 Thou/mm3 (0.0-0.8); Monocytes % (Auto) 6 % (0-12); Neutrophils # (Auto) 7.6 Thou/mm3 (1.8-7.7); Neutrophils % (Auto) 74 % (37-80); Nucleated Red Blood Cell # 0.00 Thou/mm3 (0.00-0.00); Nucleated Red Blood Cell % 0 /100 WBC (0); Platelet Count 228 Thou/mm3 (140-440); RDW Standard Deviation 41.2 fL (36.4-46.3); Red Blood Count 4.28 Miln/mm3 (4.00-5.20); White Blood Count 10.3 Thou/mm3 (3.6-11.0)
[2025-02-26 17:03] LABS: B-Type Natriuretic Peptide 67 pg/mL (0-100)
[2025-02-26 17:06] LABS: Alanine Aminotransferase 23 U/L (10-49); Albumin, Serum 4.4 gm/dL (3.5-5.0); Albumin/Globulin Ratio 1.9 (1.2-2.2); Alkaline Phosphatase 132 U/L (46-116); Anion Gap 7 (7-16); Aspartate Amino Transferase 22 U/L (0-34); BUN/Creatinine Ratio 13 Ratio (12-20); Bilirubin,Total 0.3 mg/dL (0.3-1.2); Blood Urea Nitrogen 12 mg/dL (9-23); Calcium 10.1 mg/dL (8.3-10.6); Calcium (Corrected) 10.1 mg/dL (8.5-10.1); Carbon Dioxide 29.4 mMol/L (20.0-31.0); Chloride 103 mMol/L (98-107); Creatinine (Component) 0.9 mg/dL (0.6-1.3); Estimated Creatinine Clearance 72.3 mL/min (>60); Globulin 2.3 gm/dL (2.3-3.5); Glucose 123 mg/dL (74-106); Magnesium 2.0 mg/dL (1.6-2.6); Osmolality,Calculated 278 (275-295); Potassium 3.9 mMol/L (3.4-5.1); Sodium 139 mMol/L (136-145); Total Protein 6.7 gm/dL (5.7-8.2); Troponin I < 0.002 ng/mL (0.0-0.045); eGFR > 60 See Note
--- NOTE | 2025-02-26 17:18 | PD.EDRME ---
Rapid Medical Screening Exam E Arrival date/time: 02/26/25 15:41 49-year-old female with a history of hyperlipidemia, hypertension, type 2 diabetes presents to the emergency room with a chief complaint of left sided 8 out of 10 sternal chest pain x 2 days I have greeted and performed a focused initial assessment of this patient. A comprehensive ED assessment and evaluation of the patient, analysis of all test results, and completion of the medical decision making process will be conducted by additional ED providers. Chief Complaint: Chest Pain Time Seen by Provider: 02/26/25 15:50 Vital signs: Vital Signs Temperature 98.2 F 02/26/25 16:14 Pulse Rate 82 02/26/25 16:14 Respiratory Rate 18 02/26/25 16:14 Blood Pressure 163/76 H 02/26/25 16:14 Pulse Oximetry (%) 99 02/26/25 16:14 Oxygen Delivery Method Room Air 02/26/25 16:14 Vital signs reviewed by provider: Yes
[2025-02-26 17:20] LABS: INR 0.9 (0.9-1.3); Partial Thromboplastin Time 23.9 Seconds (22.0-36.0); Prothrombin Time 9.8 Seconds (9.0-12.2)
[2025-02-26 17:59] LABS: Collection Type, Urine Clean Catch
[2025-02-26 18:20] LABS: Bilirubin,Urine Negative (Negative); Blood,Urine Negative (Negative); Clarity,Urine Clear (Clear/Hazy); Color,Urine Lt-Yellow (Lt Yel-Yel); Culture Indicated,Urine Not Indicated; Glucose, Urine 4+ (Negative); Ketones,Urine Negative (Negative); Leukocyte Esterase,Urine Negative (Negative); Nitrite,Urine Negative (Negative); PH,Urine 5.5 (5.0-7.0); Protein,Urine Negative (Neg - Trace); RBC,Urine 2 /hpf (0-3); Specific Gravity,Urine 1.025 (1.001-1.035); Squamous Epithelial Cell,Urine 2 /hpf (0-5); Urobilinogen,Urine Negative mg/dL (0.0-1.0); WBC,Urine < 1 /hpf (0-5)
[2025-02-26 18:21] LABS: Amphetamine/Methamp Scrn,U Negative (Negative); Barbiturate Screen,Urine Negative (Negative); Benzodiazepines Screen,Urine Negative (Negative); Benzoylecgonine Screen, Ur Negative (Negative); Fentanyl Screen,Urine Negative (Negative); Opiate Screen,Urine Negative (Negative); THC Screen,Urine Negative (Negative)
--- NOTE | 2025-02-26 20:19 | PD.EDCHEST ---
ED Chest Pain RME/HPI General Chief Complaint: Chest Pain Stated Complaint: CHEST PAIN RADIATES TO L SHOULD/NECK Time Seen by Provider: 02/26/25 15:50 Arrival date/time: 02/26/25 15:41 RME / HPI RME / HPI narrative: 49-year-old female with a history of hyperlipidemia, hypertension, type 2 diabetes presents to the emergency room with a chief complaint of left sided 8 out of 10 sternal chest pain x 2 days. Described as dull ache, severity moderate. Denies any cough denies any trauma denies any other complaints no medication was taken prior to ER visit. Related Data Home Medications ?Medication ?Instructions ?Recorded ?Confirmed atorvastatin 20 mg tablet 40 mg PO QDAY 04/17/22 05/01/24 metformin 1,000 mg tablet 1,000 mg PO BID 04/17/22 05/01/24 omeprazole 20 mg capsule,delayed 40 mg PO QAM 04/17/22 05/01/24 release hydrochlorothiazide 12.5 mg tablet 12.5 mg PO QDAY 05/01/24 05/01/24 lisinopril 20 mg tablet 20 mg PO QDAY 05/01/24 05/01/24 semaglutide 2 mg/dose (8 mg/3 mL) 2 mg subcut QWEEK 05/01/24 05/01/24 subcutaneous pen injector (Ozempic) buprenorphine 5 mcg/hour weekly 5 mcg topical QWEEK 05/02/24 05/02/24 transdermal patch (Butrans) insulin lispro protamine-lispro 15 unit subcut QPM 05/02/24 05/02/24 100 unit/mL (75-25) subcutaneous pen (Humalog Mix 75-25 KwikPen) insulin lispro protamine-lispro 20 unit subcut QAM 05/02/24 05/02/24 100 unit/mL (75-25) subcutaneous pen (Humalog Mix 75-25 KwikPen) Previous Rx's ?Medication ?Instructions ?Recorded metoclopramide HCl 5 mg tablet 5 mg PO TID PRN nausea and 10/01/24 (Reglan) vomiting #14 tabs ibuprofen 800 mg tablet 800 mg PO TID PRN pain #30 tabs 02/26/25 methocarbamol 500 mg tablet 500 mg PO Q8H PRN pain #20 tabs 02/26/25 Allergies Allergy/AdvReac Type Severity Reaction Status Date / Time No Known Allergies Allergy Verified 02/26/25 15:43 Review of Systems Review of Systems Narrative Review of Systems: Review of system reviewed and within normal limits except mentioned in HPI ED Exam Narrative Physical exam: VITAL SIGNS: Reviewed. GENERAL APPEARANCE: Alert and interactive, follows commands, no acute distress, HEAD AND FACE: Non-traumatic. ENT: PERRL, pink conjunctivitis, eyelid no trauma, Mucous membrane moist. NECK: Supple, nontender, no nuchal rigidity. CHEST: Left chest tenderness, no crepitus, no paradoxical movement, no retractions. LUNGS: Clear, well ventilated, symmetric, no rales, no wheezing, no ronchi, no stridor, good breath sounds bilaterally. HEART: Regular rate, regular rhythm, no murmur, no gallops. ABDOMEN: Soft, positive bowel sounds, nondistended, no guarding, nontender, no rebound, no masses, RECTAL: Deferred. GENITAL: Deferred. NEUROLOGICAL: Gross motor function intact sensory function intact, Appropriate for age. MUSCULOSKELETAL: low back nontender, full range of motion. EXTREMITIES: Nontender, full range of motion. SKIN: Color pink, dry, no rash, no lacerations, no abrasions, no contusions. LYMPHATICS: Deferred. Course Quality Measures none Orders Category Date Time Status EKG (ED ONLY) *Do not use* NOW Care 02/26/25 16:12 Completed EKG (ED Only) Stat Exams 02/26/25 16:12 Draft XR chest 2V Stat Exams 02/26/25 16:12 Taken B-Type Natriuretic Peptide Stat Lab 02/26/25 16:33 Completed CBC Stat Lab 02/26/25 16:33 Completed Comprehensive Metabolic Panel Stat Lab 02/26/25 16:33 Completed Drug Screen,Urine Stat Lab 02/26/25 17:40 Completed Magnesium Stat Lab 02/26/25 16:33 Completed Partial Thromboplastin Time Stat Lab 02/26/25 16:33 Completed Prothrombin Time with INR Stat Lab 02/26/25 16:33 Completed Troponin I Stat Lab 02/26/25 16:33 Completed Urinalysis, C/S if Indicated Stat Lab 02/26/25 17:40 Completed Ketorolac Inj [Toradol Inj] Med 02/26/25 20:16 Discontinued 30 mg IM X1 ONE Vital Signs Vital signs: Vital Signs Temperature 98.2 F 02/26/25 16:14 Pulse Rate 82 02/26/25 16:14 Respiratory Rate 18 02/26/25 16:14 Blood Pressure 163/76 H 02/26/25 16:14 Pulse Oximetry (%) 99 02/26/25 16:14 Oxygen Delivery Method Room Air 02/26/25 16:14 Chest Pain [facility] Narrative [facility] Narrative:: 49-year-old female with a history of hyperlipidemia, hypertension, type 2 diabetes presents to the emergency room with a chief complaint of left sided 8 out of 10 sternal chest pain x 2 days. Described as dull ache, severity moderate. Denies any cough denies any trauma denies any other complaints no medication was taken prior to ER visit. Patient's workup today all came back unremarkable including troponin which is normal. Repeat troponin is not needed at this time patient is having chest pain for more than 4 hours now. The rest of the labs unremarkable. Chest x-ray as interpreted by me came back unremarkable. EKG showed sinus rhythm, ventricular rate of 80 bpm, no ST segment elevation depression noted. Patient was given Toradol IM with significant proved pain. Stable for discharge home. Patient data External records reviewed:: None Clinical information provided by:: patient Social determinants that could affect healthcare access:: none Patient has the following chronic illnesses:: Diabetes mellitus hypertension How is presenting disease/condition affected by chronic disease/condition?: exacerbated by Evaluation data The following diagnostics were reviewed and interpreted by me:: lab results, radiology exam(s) and EKG tracing(s) Lab and/or radiology exams considered but not ordered:: None Interpretation Summary: See results [facility] Medications / Prescriptions Medications or Prescriptions considered but not ordered:: None Medication administrations:: Medication Administration History Discontinued Medications Ketorolac Tromethamine (Ketorolac Inj 30 Mg/Ml Vial) 30 mg IM X1 ONE Stop: 02/26/25 20:17 Toradol IM Consultations Consultation(s) initiated? (list below): No Diagnosis Chest Pain Differential Diagnosis: pneumothorax and stable angina Most likely diagnosis given after review of the tests above:: Chest. Admission Indicated Admission indicated?: not indicated Admission Request Was there a request for admission?: No Disposition Plan Disposition Plan: Discharge Discharge Attestation Discharge Attestation: The patient and all family members were given an opportunity to ask questions and understood the discharge instructions. Discharge instructions specifically effects, indications for sooner follow up or return to the emergency department, and the expected course of current diagnosis. Patient condition: Stable Discharge Plan Plan Patient Disposition: HOME (Self Care) Discharge Disposition comment: stable Prescriptions/Referrals Prescriptions/Med Rec: New ibuprofen 800 mg tablet 800 mg PO TID PRN (Reason: pain) Qty: 30 0RF methocarbamol 500 mg tablet 500 mg PO Q8H PRN (Reason: pain) Qty: 20 0RF No Action metoclopramide HCl [Reglan] 5 mg tablet 5 mg PO TID PRN (Reason: nausea and vomiting) Qty: 14 0RF atorvastatin 20 mg tablet 40 mg PO QDAY Patient Comments: TAKE 1 TABLET BY MOUTH ONCE DAILY metformin 1,000 mg tablet 1,000 mg PO BID Patient Comments: TAKE 1 TABLET BY MOUTH TWICE DAILY omeprazole 20 mg capsule,delayed release(DR/EC) 40 mg PO QAM Patient Comments: TAKE 1 CAPSULE BY MOUTH ONCE DAILY AT NIGHT lisinopril 20 mg Tablet 20 mg PO QDAY hydrochlorothiazide 12.5 mg Tablet 12.5 mg PO QDAY Ozempic 2 mg/dose (8 mg/3 mL) Pen Injector 2 mg SUBCUT QWEEK insulin lispro protamin-lispro [Humalog Mix 75-25 KwikPen] 100 unit/mL (75-25) insulin pen 20 unit SUBCUT QAM Patient Comments: INJECT 20 UNITS SUBCUTANEOUSLY IN THE MORNING AND 15 UNITS AT NIGHT buprenorphine [Butrans] 5 mcg/hour patch weekly 5 mcg TOPICAL QWEEK Patient Comments: APPLY 1 PATCH TOPICALLY TO SKIN ONCE A WEEK insulin lispro protamin-lispro [Humalog Mix 75-25 KwikPen] 100 unit/mL (75-25) insulin pen 15 unit SUBCUT QPM Referrals: Cam Johnson MD [Primary Care Provider, Family Practice] - In 1 week Problem List Clinical Impression: Chest pain Patient/Caregiver Discharge Instructions Discharge Activity: activity as tolerated Education Materials: Medicine for Pain Additional Instructions: Thank you for the opportunity for serving you today. You are stable for discharged . You are advised to: Follow-up with your PCP in 1 to 2 days Return to ED for worsening of symptoms Increase oral fluids Take medication as prescribed Print Language: Korean Stand Alone Forms: Donna Award Info., Patient Portal Info Letter PA/PLYWOOD FACTORY WORKER Supervising Physician PA/[employer]OD FACTORY WORKER Supervising Physician: MD Sharlene
[2025-02-26] MEDS: KETOROLAC INJ 30 MG/ML VIAL IM (20:23)
[2025-02-26 20:57] VITALS: RESP 16
== END 2025-02-26 20:58 | disposition home or self-care (01) ==
PROVIDERS: Nurse Practitioner Family; Emergency Provider Family Medicine; PCP Family Medicine
DX: R07.2 Precordial pain (principal); R94.31 Abnormal electrocardiogram [ECG] [EKG]; I10 Essential (primary) hypertension; E78.5 Hyperlipidemia, unspecified
CPT/HCPCS: 36415; 71046; 80053; 80307; 81001; 83735; 83880; 84484; 85025; 85610; 85730; 93005; 96372; 99283; J1885

== ENCOUNTER 2025-03-11 13:05 | Emergency (ER) | payer MEDICAID, SELFPAY ==
--- NOTE | 2025-03-11 13:25 | XR_ITS ---
Examination: Hand, right 3 views Technique: Hand AP, oblique, lateral 3 views Date and time of exam: March 11, 2025, 1347 hours INDICATIONS: Patient heard a pop in the hand 2 days ago followed by pain FINDINGS: Mild osteopenia. No acute fracture No dislocation IMPRESSION: No acute fracture
--- NOTE | 2025-03-11 13:25 | XR_ITS ---
Examination: CT abdomen and pelvis without contrast. Coronal 3-D reconstructions. Sagittal 2-D reconstructions. Date and time of exam:March 11, 2025, 1501 hours, comparison March 26, 2023 INDICATIONS: Right-sided flank pain beginning this morning CTDI: vol (mGy): 7.25 DLP: (mGycm): 385 Technique: Axial images of the abdomen have been obtained, 3 mm slice thickness Intravenous contrast material has not been administered. Low dose protocols were performed. One or more of the following dose reduction techniques were used; automated exposure control, adjustment of the mA and/or KV according to patient size, use of iterative reconstruction technique. Findings: No focal liver or splenic lesions Absent gallbladder No pancreatic or adrenal mass Mild renal scar formation No 1 mm lower pole left renal calculus renal or ureteral calculi, no hydronephrosis Aorta normal size Moderately air and stool distended right colon No obstruction No diverticulitis Urinary bladder intact Anteverted uterus No pelvic mass Significant disc narrowing L4-L5, L5-S1 IMPRESSION: 1 mm lower pole left renal calculus coronal image 96 No ureteral calculi or hydronephrosis No bladder mass or bladder calculi
[2025-03-11 13:26] VITALS: BP 147/82; PULSE 76; RESP 17; TEMP 36.7; O2SAT 98
[2025-03-11] MEDS: KETOROLAC INJ 30 MG/ML VIAL IM (14:11)
[2025-03-11 14:13] LABS: Basophils # (Auto) 0.1 Thou/mm3 (0.0-0.2); Basophils % (Auto) 1 % (0-2.5); Eosinophils # (Auto) 0.2 Thou/mm3 (0.0-0.5); Eosinophils % (Auto) 2 % (0-10); Hematocrit 38.3 % (36.0-46.0); Hemoglobin 12.6 g/dL (12.0-16.0); Immature Granulocytes Auto 0.02 Thou/mm3 (0.00-0.00); Lymphocytes # (Auto) 1.6 Thou/mm3 (1.0-4.8); Lymphocytes % (Auto) 18 % (10-50); Mean Corpuscular HGB Conc 32.9 g/dl (31.0-37.0); Mean Corpuscular Hemoglobin 29.0 pg (25.0-35.0); Mean Corpuscular Volume 88 fL (80-100); Monocytes # (Auto) 0.5 Thou/mm3 (0.0-0.8); Monocytes % (Auto) 5 % (0-12); Neutrophils # (Auto) 6.5 Thou/mm3 (1.8-7.7); Neutrophils % (Auto) 74 % (37-80); Nucleated Red Blood Cell # 0.00 Thou/mm3 (0.00-0.00); Nucleated Red Blood Cell % 0 /100 WBC (0); Platelet Count 267 Thou/mm3 (140-440); RDW Standard Deviation 40.4 fL (36.4-46.3); Red Blood Count 4.34 Miln/mm3 (4.00-5.20); White Blood Count 8.8 Thou/mm3 (3.6-11.0)
[2025-03-11 14:25] LABS: Glucose Estimated Average 163 mg/dL (80-131); Hemoglobin A1C 7.3 % Hgb (4.8-6.0)
[2025-03-11 14:26] LABS: Alanine Aminotransferase 21 U/L (10-49); Albumin, Serum 4.5 gm/dL (3.5-5.0); Albumin/Globulin Ratio 1.8 (1.2-2.2); Alkaline Phosphatase 149 U/L (46-116); Anion Gap 9 (7-16); Aspartate Amino Transferase 20 U/L (0-34); BUN/Creatinine Ratio 15 Ratio (12-20); Bilirubin,Total 0.3 mg/dL (0.3-1.2); Blood Urea Nitrogen 12 mg/dL (9-23); Calcium 9.7 mg/dL (8.3-10.6); Calcium (Corrected) 9.7 mg/dL (8.5-10.1); Carbon Dioxide 26.8 mMol/L (20.0-31.0); Chloride 104 mMol/L (98-107); Creatinine (Component) 0.8 mg/dL (0.6-1.3); Globulin 2.5 gm/dL (2.3-3.5); Glucose 146 mg/dL (74-106); Lipase 36 U/L (12-53); Osmolality,Calculated 282 (275-295); Potassium 3.6 mMol/L (3.4-5.1); Sodium 140 mMol/L (136-145); Total Protein 7.0 gm/dL (5.7-8.2); eGFR > 60 See Note
[2025-03-11 14:40] LABS: Collection Type, Urine Clean Catch
[2025-03-11 14:46] LABS: Bilirubin,Urine Negative (Negative); Blood,Urine Negative (Negative); Clarity,Urine Clear (Clear/Hazy); Color,Urine Lt-Yellow (Lt Yel-Yel); Culture Indicated,Urine Not Indicated; Glucose, Urine 2+ (Negative); Ketones,Urine Negative (Negative); Leukocyte Esterase,Urine Negative (Negative); Nitrite,Urine Negative (Negative); PH,Urine 5.5 (5.0-7.0); Protein,Urine Negative (Neg - Trace); RBC,Urine 1 /hpf (0-3); Specific Gravity,Urine 1.026 (1.001-1.035); Squamous Epithelial Cell,Urine 1 /hpf (0-5); Urobilinogen,Urine Negative mg/dL (0.0-1.0); WBC,Urine < 1 /hpf (0-5)
[2025-03-11 14:48] LABS: HCG Qualitative,Urine Negative
--- NOTE | 2025-03-11 16:15 | PD.EDHAND ---
Upper Extremity Injury RME/HPI General Chief Complaint: Hand/Wrist Problems Stated Complaint: R WRIST INJURY AND ABNORMAL URINE SAMPLE Time Seen by Provider: 03/11/25 13:25 Arrival date/time: 03/11/25 13:05 49-year-old female presents for 2 separate complaints patient reports right wrist injury patient reports she tripped and fell patient also reports dysuria and abdominal pain patient reports no fever vomiting Limitations: no limitations Related Data Home Medications ?Medication ?Instructions ?Recorded ?Confirmed atorvastatin 20 mg tablet 40 mg PO QDAY 04/17/22 05/01/24 metformin 1,000 mg tablet 1,000 mg PO BID 04/17/22 05/01/24 omeprazole 20 mg capsule,delayed 40 mg PO QAM 04/17/22 05/01/24 release hydrochlorothiazide 12.5 mg tablet 12.5 mg PO QDAY 05/01/24 05/01/24 lisinopril 20 mg tablet 20 mg PO QDAY 05/01/24 05/01/24 semaglutide 2 mg/dose (8 mg/3 mL) 2 mg subcut QWEEK 05/01/24 05/01/24 subcutaneous pen injector (Ozempic) buprenorphine 5 mcg/hour weekly 5 mcg topical QWEEK 05/02/24 05/02/24 transdermal patch (Butrans) insulin lispro protamine-lispro 15 unit subcut QPM 05/02/24 05/02/24 100 unit/mL (75-25) subcutaneous pen (Humalog Mix 75-25 KwikPen) insulin lispro protamine-lispro 20 unit subcut QAM 05/02/24 05/02/24 100 unit/mL (75-25) subcutaneous pen (Humalog Mix 75-25 KwikPen) Previous Rx's ?Medication ?Instructions ?Recorded metoclopramide HCl 5 mg tablet 5 mg PO TID PRN nausea and 10/01/24 (Reglan) vomiting #14 tabs ibuprofen 800 mg tablet 800 mg PO TID PRN pain #30 tabs 02/26/25 methocarbamol 500 mg tablet 500 mg PO Q8H PRN pain #20 tabs 02/26/25 ibuprofen 600 mg tablet 600 mg PO Q6H #30 tabs 03/11/25 Allergies Allergy/AdvReac Type Severity Reaction Status Date / Time No Known Allergies Allergy Verified 03/11/25 13:08 Review of Systems Review of Systems Systems Reviewed: All systems reviewed, normal except as documented Constitutional Constitutional: Reports system reviewed and no additional complaints, except as documented, Denies fever(s) and Denies headache(s) Eyes Eyes: Reports system reviewed and no additional complaints, except as documented and Denies blurry vision ENT Ears, Nose, Mouth, and Throat: Reports system reviewed and no additional complaints, except as documented, Denies headache(s), Denies nasal congestion and Denies nasal discharge Cardiovascular Cardiovascular: Reports system reviewed and no additional complaints, except as documented, Denies chest pain and Denies dyspnea Respiratory Respiratory: Reports system reviewed and no additional complaints, except as documented, Denies chest congestion, Denies cough and Denies dyspnea Gastrointestinal Gastrointestinal: Reports system reviewed and no additional complaints, except as documented and Denies abdominal pain Musculoskeletal Musculoskeletal: Reports system reviewed and no additional complaints, except as documented, Denies deformity, Denies numbness, Reports stiffness and Denies tingling Integumentary/Breasts Skin/Breast: Reports system reviewed and no additional complaints, except as documented and Denies rash Neurologic Neurologic: Reports system reviewed and no additional complaints, except as documented, Reports as per HPI, Denies headache(s), Denies numbness and Denies tingling Past Medical History Past Medical History NEUROLOGIC: Negative Neurological Disorders or Seizures CARDIAC: Positive Cardiac Disorders, Hypercholesterolemia and Edema; Negative Congestive Heart Failure, Cellulitis or Varicose Veins RESPIRATORY: Positive Asthma and Pneumonia; Negative Chronic Obstructive Pulmonary Disease (COPD), Bronchitis, Tuberculosis or Sleep Apnea GASTROINTESTINAL: Positive Gastrointestinal Disorders, Pancreatitis, Gall Bladder Disease, Hiatal Hernia and Gastroesophageal Reflux Disease; Negative Hepatitis, Ulcer or Colorectal Cancer GENITOURINARY: Negative Genitourinary Disorders or Renal Disease REPRODUCTIVE: Positive Previous Pregnancies; Negative Breast Cancer, Genital Herpes, Gonorrhea, Pelvic Inflammatory Disease or Syphilis MUSCULOSKELETAL: Negative Musculoskeletal Disorders or Bone Cancer ENDOCRINE: Positive Endocrine Disorders and Diabetes Mellitus Type 2; Negative Diabetes Mellitus Type 1, Hyperthyroidism or Hypothyroidism HEMATOLOGIC: Positive Blood Disorders and Anemia; Negative Sickle Cell Disease PSYCHO/SOCIAL: Positive Anxiety OTHER HISTORY: Positive Hospitalization and Blood Transfusions; Negative Autoimmune Disease, Shingles, Falls, Blood Transfusion Reaction, Anesthesia Reactions, Organ Transplant, Chemotherapy, MRSA, VRSA, Vancomycin-Resistant Enterococci, Human Immunodeficiency Virus (HIV), Chicken Pox, Measles, Mumps, Rubella (Swiss Measles), Pertussis, Clostridium Difficile, Cancer, Breast Cancer, Cervical Cancer, Colorectal Cancer, Lung Cancer or Ovarian Cancer Family History FAMILY HISTORY: Positive Family Psychiatric Problems, Family Respiratory Disorders, Family Cardiac Disorders, Family Cancer and Family Surgery; Negative Family Gastrointestinal Problems or Family Anesthesia Reaction Surgical History SURGICAL: Positive Abdominal Surgery and Section; Negative Cardiac Surgery, Pacemaker, Endocrine Surgery, Thyroidectomy, Ear Surgery, Nephrectomy, Joint Replacement, Neurologic Surgery, Mastectomy or Organ Transplant Social History SMOKING STATUS: Never smoker SECOND HAND EXPOSURE: No ED Exam General Limitations: Present no limitations General appearance: Present alert and in no apparent distress Head Head exam: Present atraumatic, normocephalic and normal inspection Eye Eye exam: Present normal appearance, PERRL and EOMI; Absent conjunctival injection ENT ENT exam: Present normal exam, normal oropharynx and mucous membranes moist Neck Neck exam: Present normal inspection, full ROM and trachea midline Chest Chest inspection: Present normal inspection and symmetric chest wall rise Respiratory Respiratory exam: Present normal lung sounds bilaterally; Absent respiratory distress Cardiovascular Cardiovascular exam: Present regular rate, normal rhythm and normal heart sounds Abdominal Exam Abdominal exam: Present soft and normal bowel sounds; Absent distention, tenderness, guarding, rebound or rigidity Extremities Exam Extremities exam: Present normal inspection and full ROM Back Exam Back exam: Present normal inspection and full ROM Neurological Exam Neurological exam: Present alert, oriented X3, CN II-XII intact, normal gait and reflexes normal; Absent motor sensory deficit Psychiatric Psychiatric exam: Present normal affect and normal mood Skin Skin exam: Present warm, dry, intact and normal color; Absent rash Course Quality Measures none Orders Category Date Time Status CT abdomen pelvis wo con Stat Exams 03/11/25 13:25 Completed XR hand comp RT min 3V Stat Exams 03/11/25 13:25 Completed A1C [Glycohemoglobin w (eAG)] Stat Lab 03/11/25 13:56 Completed CBC Stat Lab 03/11/25 13:56 Completed Comprehensive Metabolic Panel Stat Lab 03/11/25 13:56 Completed HCG Qualitative,Urine Stat Lab 03/11/25 14:24 Completed Lipase Stat Lab 03/11/25 13:56 Completed UA, C/S IF [Urinalysis, C/S if Indicated] Stat Lab 03/11/25 14:24 Completed Ketorolac Inj [Toradol Inj] Med 03/11/25 13:25 Discontinued 30 mg IM X1 ONE Vital Signs Vital signs: Vital Signs Temperature 98.0 F 03/11/25 13:26 Pulse Rate 76 03/11/25 13:26 Respiratory Rate 17 03/11/25 13:26 Blood Pressure 147/82 H 03/11/25 13:26 Pulse Oximetry (%) 98 03/11/25 13:26 Oxygen Delivery Method Room Air 03/11/25 13:26 O2 saturation 98% room air within normal limits Extremity Injury MDM Narrative MDM Narrative:: 49-year-old female presents for 2 separate complaints patient reports right wrist injury patient reports she tripped and fell patient also reports dysuria and abdominal pain patient reports no fever vomiting On exam patient well-appearing patient does not appear ill or toxic no acute distress Based on symptomatology symptoms are consistent with generalized abdominal pain without significant findings on imaging or lab work Imaging of the right hand obtained no acute emergent findings noted Patient discharged home in no distress to follow-up with primary care doctor in the next 24 to 48 hours and for any worsening symptoms to return to the ER immediately Patient data External records reviewed:: [facility] previous records Clinical information provided by:: patient Social determinants that could affect healthcare access:: none Patient has the following chronic illnesses:: See history How is presenting disease/condition affected by chronic disease/condition?: uneffected by Evaluation data The following diagnostics were reviewed and interpreted by me:: lab results and radiology exam(s) Lab and/or radiology exams considered but not ordered:: Labs and radiology obtained Interpretation Summary: Reviewed by me Medications / Prescriptions Medications or Prescriptions considered but not ordered:: Given Medication administrations:: Medication Administration History Discontinued Medications Ketorolac Tromethamine (Ketorolac Inj 30 Mg/Ml Vial) 30 mg IM X1 ONE Stop: 03/11/25 13:26 Last Admin: 03/11/25 14:11 Dose: 30 mg Documented By: Given Consultations Consultation(s) initiated? (list below): No Diagnosis Upper Extremity Injury Differential Diagnosis: sprain and strain of wrist and fracture of wrist Most likely diagnosis given after review of the tests above:: Risk contusion Admission Indicated Admission indicated?: not indicated Admission Request Was there a request for admission?: No Disposition Plan Disposition Plan: Discharge Discharge Attestation Discharge Attestation: The patient and all family members were given an opportunity to ask questions and understood the discharge instructions. Discharge instructions specifically effects, indications for sooner follow up or return to the emergency department, and the expected course of current diagnosis. Patient condition: Stable Discharge Plan Plan Patient Disposition: HOME (Self Care) Discharge Disposition comment: Stable Prescriptions/Referrals Prescriptions/Med Rec: New ibuprofen 600 mg tablet 600 mg PO Q6H Qty: 30 0RF No Action metoclopramide HCl [Reglan] 5 mg tablet 5 mg PO TID PRN (Reason: nausea and vomiting) Qty: 14 0RF ibuprofen 800 mg tablet 800 mg PO TID PRN (Reason: pain) Qty: 30 0RF methocarbamol 500 mg tablet 500 mg PO Q8H PRN (Reason: pain) Qty: 20 0RF atorvastatin 20 mg tablet 40 mg PO QDAY Patient Comments: TAKE 1 TABLET BY MOUTH ONCE DAILY metformin 1,000 mg tablet 1,000 mg PO BID Patient Comments: TAKE 1 TABLET BY MOUTH TWICE DAILY omeprazole 20 mg capsule,delayed release(DR/EC) 40 mg PO QAM Patient Comments: TAKE 1 CAPSULE BY MOUTH ONCE DAILY AT NIGHT lisinopril 20 mg Tablet 20 mg PO QDAY hydrochlorothiazide 12.5 mg Tablet 12.5 mg PO QDAY Ozempic 2 mg/dose (8 mg/3 mL) Pen Injector 2 mg SUBCUT QWEEK insulin lispro protamin-lispro [Humalog Mix 75-25 KwikPen] 100 unit/mL (75-25) insulin pen 20 unit SUBCUT QAM Patient Comments: INJECT 20 UNITS SUBCUTANEOUSLY IN THE MORNING AND 15 UNITS AT NIGHT buprenorphine [Butrans] 5 mcg/hour patch weekly 5 mcg TOPICAL QWEEK Patient Comments: APPLY 1 PATCH TOPICALLY TO SKIN ONCE A WEEK insulin lispro protamin-lispro [Humalog Mix 75-25 KwikPen] 100 unit/mL (75-25) insulin pen 15 unit SUBCUT QPM Referrals: No Primary/Family,Physician [Primary Care Provider] - In 1 week Problem List Clinical Impression: Hand pain, right, Abdominal pain Patient/Caregiver Discharge Instructions Education Materials: RICE Additional Instructions: Please follow up with your primary care doctor in the next 24-48hrs for any worsening symptoms return here immediately Print Language: Mohawk Stand Alone Forms: Donna Award Info., Patient Portal Info Letter PA/QUALITY COMPLIANCE CONSULTANT Supervising Physician PA/QUALITY COMPLIANCE CONSULTANT Supervising Physician: Dr. davison
== END 2025-03-11 16:59 | disposition home or self-care (01) ==
PROVIDERS: Nurse Practitioner Primary Care; Emergency Provider Family Medicine
DX: S69.91XA Unspecified injury of right wrist, hand and finger(s), initial encounter (principal); W01.0XXA Fall on same level from slipping, tripping and stumbling without subsequent striking against object, initial encounter; E11.9 Type 2 diabetes mellitus without complications
CPT/HCPCS: 36415; 73130; 74176; 80053; 81001; 81025; 83036; 83690; 85025; 96372; 99283; J1885

== ENCOUNTER 2025-05-26 23:02 | Emergency (ER) | payer MEDICAID, SELFPAY ==
[2025-05-26 23:04] VITALS: BMI 20.6
--- NOTE | 2025-05-26 23:07 | EKG_ITS ---
[facility] Test Date: 2025-05-26 Pat Name: HANNAH LA Department: Room: - Gender: Female Senior Net Programmer: : 1975 Requested By: ED Temporary Provider Order Number: [id number] Reading MD: ED Temporary Provider Measurements Intervals Frostproof Rate: 96 P: 77 [place]: 124 QRS: 47 QRSD: 82 T: 90 QT: 341 QTc: 432 Interpretive Statements SINUS RHYTHM NONSPECIFIC ST & T-WAVE ABNORMALITY Compared to ECG 02/26/2025 16:19:19 T-wave abnormality now present Myocardial infarct finding no longer present /[id number]/[id number].pdf
[2025-05-26 23:34] VITALS: BP 140/71; PULSE 95; RESP 18; TEMP 36.8; O2SAT 99
--- NOTE | 2025-05-26 23:48 | XR_ITS ---
Examination: Foot bilateral, 5 views Technique: Bilateral AP feet, right and left oblique right and left lateral foot images total 5 views Date and time: May 27, 2025, 0003 hours INDICATION: Bilateral foot pain and swelling beginning last night no injury FINDINGS: No fracture or dislocation involving either foot No erosive or other significant arthritic change 2 mm right bony calcaneal spur, plantar IMPRESSION: No fracture or dislocation involving either foot No erosive or other significant arthritic change involving either foot 2 mm right plantar bony calcaneal spur
--- NOTE | 2025-05-26 23:48 | XR_ITS ---
EXAMINATION: PA chest single view TECHNIQUE: Upright PA chest single view Date and time: May 26, 2025, 2358 hours, comparison February 26, 2025 INDICATIONS: Chest pain beginning last night FINDINGS: Normal heart size Lungs are clear Intact osseous structures IMPRESSION: No active disease
--- NOTE | 2025-05-26 23:48 | PD.EDRME ---
Rapid Medical Screening Exam RME Arrival date/time: 05/26/25 23:02 49F with history of DM, HTN, and pancreatitis presents to ED with bilateral feet pain and swelling, as well some CP, SOB, and cough. Chief Complaint: Extremity Problem,Nontraumatic Vital signs: Vital Signs Temperature 98.2 F 05/26/25 23:34 Pulse Rate 95 05/26/25 23:34 Respiratory Rate 18 05/26/25 23:34 Blood Pressure 140/71 H 05/26/25 23:34 Pulse Oximetry (%) 99 05/26/25 23:34 Oxygen Delivery Method Room Air 05/26/25 23:34 Exam: Mild feet swelling. Normal WOB. Clinical Impression: Cellulitis vs osteo vs URI vs CAP vs joint pain
[2025-05-27] MEDS: NAPROXEN 250 MG TABLET 500 MG PO (00:23)
[2025-05-27 00:42] LABS: Basophils # (Auto) 0.1 Thou/mm3 (0.0-0.2); Basophils % (Auto) 0 % (0-2.5); Eosinophils # (Auto) 0.1 Thou/mm3 (0.0-0.5); Eosinophils % (Auto) 1 % (0-10); Hematocrit 36.7 % (36.0-46.0); Hemoglobin 12.1 g/dL (12.0-16.0); Immature Granulocytes Auto 0.05 Thou/mm3 (0.00-0.00); Lymphocytes # (Auto) 1.7 Thou/mm3 (1.0-4.8); Lymphocytes % (Auto) 15 % (10-50); Mean Corpuscular HGB Conc 33.0 g/dl (31.0-37.0); Mean Corpuscular Hemoglobin 28.2 pg (25.0-35.0); Mean Corpuscular Volume 86 fL (80-100); Monocytes # (Auto) 0.9 Thou/mm3 (0.0-0.8); Monocytes % (Auto) 8 % (0-12); Neutrophils # (Auto) 8.6 Thou/mm3 (1.8-7.7); Neutrophils % (Auto) 76 % (37-80); Nucleated Red Blood Cell # 0.00 Thou/mm3 (0.00-0.00); Nucleated Red Blood Cell % 0 /100 WBC (0); Platelet Count 313 Thou/mm3 (140-440); RDW Standard Deviation 38.2 fL (36.4-46.3); Red Blood Count 4.29 Miln/mm3 (4.00-5.20); White Blood Count 11.4 Thou/mm3 (3.6-11.0)
[2025-05-27 01:06] LABS: Alanine Aminotransferase 42 U/L (10-49); Albumin, Serum 4.0 gm/dL (3.5-5.0); Albumin/Globulin Ratio 1.3 (1.2-2.2); Alkaline Phosphatase 191 U/L (46-116); Anion Gap 10 (7-16); Aspartate Amino Transferase 51 U/L (0-34); BUN/Creatinine Ratio 28 Ratio (12-20); Bilirubin,Total 0.2 mg/dL (0.3-1.2); Blood Urea Nitrogen 34 mg/dL (9-23); Calcium 9.0 mg/dL (8.3-10.6); Calcium (Corrected) 9.0 mg/dL (8.5-10.1); Carbon Dioxide 29.7 mMol/L (20.0-31.0); Chloride 99 mMol/L (98-107); Creatinine (Component) 1.2 mg/dL (0.6-1.3); Estimated Creatinine Clearance 53.1 mL/min (>60); Globulin 3.2 gm/dL (2.3-3.5); Glucose 295 mg/dL (74-106); Osmolality,Calculated 296 (275-295); Potassium 3.0 mMol/L (3.4-5.1); Sodium 139 mMol/L (136-145); Total Protein 7.2 gm/dL (5.7-8.2); Troponin I < 0.020 ng/mL (0.0-0.045); eGFR 56 See Note
--- NOTE | 2025-05-27 01:36 | PC.NURSE ---
YOLANDA BRODY NOTIFIED OF PATIENT'S PAIN OF 10/10 AND REQUESTING PAIN MEDICATION, NO NEW ORDERS RECEIVED.
[2025-05-27 02:45] VITALS: BP 163/74; PULSE 86; RESP 18; TEMP 36.8; O2SAT 99
--- NOTE | 2025-05-27 03:02 | PD.EDEXREM ---
ED Extremity Problem RME/HPI General Chief complaint: Extremity Problem,Nontraumatic Stated complaint: REDNESS, SWELLING TO BLE SINCE LAST NIGHT, CHEST P Time Seen by Provider: 05/27/25 00:12 Arrival date/time: 05/26/25 23:02 RME / HPI RME / HPI Narrative: 05/26/25 23:02 49F with history of DM, HTN, and pancreatitis presents to ED with bilateral feet pain and swelling, as well some CP, SOB, and cough. DR. DUFFY MAIN ED EVALUATION: 49 y/o female with Hx of Type II DM, HTN, Chronic Back Pain, Remote Methamphetamine use, and Pancreatitis presents to ED c/o severe BL foot pain, numbness, and swelling extending up to the knees x last night. Patient takes [place] for back pain and reports no relief to her LE pain. Also reports no relief from Gabapentin. Denies recent prolonged travel. Denies abdominal pain. Denies any Hx of IV drug use. Also denies any allergies to medications. Patient does not see a accounts payable accountant. Exam: Mild feet swelling. Normal WOB. Impression: Cellulitis vs osteo vs URI vs CAP vs joint pain Related Data Home Medications ?Medication ?Instructions ?Recorded ?Confirmed atorvastatin 20 mg tablet 40 mg PO QDAY 04/17/22 05/01/24 metformin 1,000 mg tablet 1,000 mg PO BID 04/17/22 05/01/24 omeprazole 20 mg capsule,delayed 40 mg PO QAM 04/17/22 05/01/24 release hydrochlorothiazide 12.5 mg tablet 12.5 mg PO QDAY 05/01/24 05/01/24 lisinopril 20 mg tablet 20 mg PO QDAY 05/01/24 05/01/24 semaglutide 2 mg/dose (8 mg/3 mL) 2 mg subcut QWEEK 05/01/24 05/01/24 subcutaneous pen injector (Ozempic) buprenorphine 5 mcg/hour weekly 5 mcg topical QWEEK 05/02/24 05/02/24 transdermal patch (Butrans) insulin lispro protamine-lispro 15 unit subcut QPM 05/02/24 05/02/24 100 unit/mL (75-25) subcutaneous pen (Humalog Mix 75-25 KwikPen) insulin lispro protamine-lispro 20 unit subcut QAM 05/02/24 05/02/24 100 unit/mL (75-25) subcutaneous pen (Humalog Mix 75-25 KwikPen) Previous Rx's ?Medication ?Instructions ?Recorded metoclopramide HCl 5 mg tablet 5 mg PO TID PRN nausea and 10/01/24 (Reglan) vomiting #14 tabs ibuprofen 800 mg tablet 800 mg PO TID PRN pain #30 tabs 02/26/25 methocarbamol 500 mg tablet 500 mg PO Q8H PRN pain #20 tabs 02/26/25 ibuprofen 600 mg tablet 600 mg PO Q6H #30 tabs 03/11/25 Allergies Allergy/AdvReac Type Severity Reaction Status Date / Time No Known Allergies Allergy Verified 05/26/25 23:04 Review of Systems Review of Systems Systems Reviewed: All systems reviewed, normal except as documented Past Medical History Past Medical History CARDIAC: Positive Cardiac Disorders, Hypercholesterolemia and Edema RESPIRATORY: Positive Asthma and Pneumonia GASTROINTESTINAL: Positive Gastrointestinal Disorders, Pancreatitis, Gall Bladder Disease, Hiatal Hernia and Gastroesophageal Reflux Disease REPRODUCTIVE: Positive Previous Pregnancies ENDOCRINE: Positive Endocrine Disorders and Diabetes Mellitus Type 2 HEMATOLOGIC: Positive Blood Disorders and Anemia PSYCHO/SOCIAL: Positive Anxiety OTHER HISTORY: Positive Hospitalization and Blood Transfusions Family History FAMILY HISTORY: Positive Family Psychiatric Problems, Family Respiratory Disorders, Family Cardiac Disorders, Family Cancer and Family Surgery Surgical History SURGICAL: Positive Abdominal Surgery and Section ED Exam Narrative Physical exam: GEN. APPEARANCE: The patient is alert awake oriented X-3 in no distress, lying down comfortably, does not look ill/toxic. Patient has good eye contact. Patient is cooperative. VITALS: All vitals were reviewed and the pulse ox is 99% on room air which is normal according to my interpretation. HEENT: Normocephalic, atraumatic. Pupils are equal and reactive. Oral mucosa is moist. Patent Nares NECK: Supple, nontender, no thyromegaly, no meningismus, no JVD CHEST: Symmetrical, atraumatic, and with equal expansion , Nontender on palpation no deformity and no crepitus. CARDIOVASCULAR: Heart regular rhythm no murmur or gallop rub or extra beats. LUNGS: Clear to auscultation bilaterally with symmetrical chest rise. No laboring tachypnea or wheezing. No intercostal subcostal retraction. No rales and no rhonchi. ABDOMEN: Soft, flat, nontender to palpation, no guarding or rebound tenderness. There are no abnormal masses palpated. Active and normal bowel sounds. EXTREMITIES: Hyperalgesia of BLE. No BLE edema. No cyanosis. Patient is able to move all 4 extremities well, with full ROM and good CSM. SKIN: Warm and dry, skin discoloration to right greater toe and left foot second digit. MUSCULOSKELETAL: No lumbar or midline bony tenderness. There is no CVA tenderness. No paraspinal muscle spasm or tenderness. NEURO: Patient is RICHEY x 4, Cranial nerves II through XII grossly intact. There is no focal neurologic deficits noted. GCS is 15, PNS and HAM PASSER appear grossly intact. Ambulating without difficulty. PSYCHIATRIC: Patient is in normal mood and affect. Course Quality Measures none Orders Category Date Time Status Bedside COVID-19 Antigen Test NOW Care 05/26/25 23:48 Active Bedside Influenza A&B Antigen Test NOW Care 05/26/25 23:[address] Screening NOW Care 05/27/25 03:15 Active EKG (ED ONLY) *Do not use* NOW Care 05/26/25 23:[address] angio abd ilio fem runoff Stat Exams 05/27/25 03:15 Taken EKG (ED Only) Stat Exams 05/26/25 23:07 Draft XR chest 1V portable Stat Exams 05/26/25 23:48 Taken XR foot comp BI min 3V Stat Exams 05/26/25 23:48 Taken BNP [B-Type Natriuretic Peptide] Stat Lab 05/27/25 00:30 Completed C-Reactive Protein Stat Lab 05/27/25 00:30 Completed CBC Stat Lab 05/26/25 23:48 Completed Comprehensive Metabolic Panel Stat Lab 05/26/25 23:48 Completed HCG,Qualitative Serum Stat Lab 05/27/25 00:30 Completed Sed Rate (ESR) Stat Lab 05/27/25 00:30 Completed Troponin I Stat Lab 05/26/25 23:48 Completed Morphine* Inj Med 05/27/25 03:17 Discontinued 2 mg IVP STAT STA Naproxen [Naprosyn] Med 05/27/25 00:12 Discontinued 500 mg PO X1 ONE Potassium Chloride [K-Dur] Med 05/27/25 03:17 Discontinued 40 meq PO X1 ONE Vital Signs Vital signs: Vital Signs Temperature 98.2 F 05/26/25 23:34 Pulse Rate 95 05/26/25 23:34 Respiratory Rate 18 05/26/25 23:34 Blood Pressure 140/71 H 05/26/25 23:34 Pulse Oximetry (%) 99 05/26/25 23:34 Oxygen Delivery Method Room Air 05/26/25 23:34 Extremity Problem MDM Narrative MDM Narrative:: Scribe Attestation: I, Allie Baumann, am scribing for and in the presence of Dr. Duffy. Provider Notation: Although this document has been carefully reviewed, there may still be some phonetic and other typographical errors. These errors are purely grammatical due to imperfections in the software program and should not be construed in any way to compromise the substance of the patient's medical care during this visit. 49F with history of DM, HTN,DM, diabetic neuropathy, pancreatitis presents to ED with bilateral feet pain and swelling. Vital signs and exam as listed. Prior provider evaluated patient. Ordered labs x-ray of the chest feet as well as an EKG. Offered medication for symptom relief. On my evaluation patient with severe tenderness to palpation bilateral feet, decrease sensation to her feet ankles and bilateral lower legs, no swelling appreciated, patient has 2+ DP pulses bilateral symmetric intact bilateral lower extremities are warm. Patient able to wiggle toes and move ankle however range of motion is limited secondary to pain. No calf tenderness bilaterally. Patient does have a areas of dark pigmentation at the distal end of her toes on bilateral feet worse on the second toe on the left as well as the first toe on the right. Concern for for circulation to bilateral lower extremities, vascular occlusion, diabetic neuropathy, osteomyelitis. Labs without any significant acute hematologic abnormalities, patient has hypokalemia potassium 3.0 will replete. Normal bicarb normal anion gap. Patient with hyperglycemia glucose 295, no significant transaminitis troponin not elevated. EKG performed today at 2338, interpreted by me. Notable for sinus rhythm, heart rate 96, normal intervals, nonspecific T wave changes, not a cardiac alert. No acute cardiopulmonary abnormalities appreciated on chest x-ray. ESR 40, CRP 2.6. Chest x-ray and x-ray of the feet without any acute abnormalities. Patient data External records reviewed:: [facility] [place] previous records (Reviewed prior ED records from 03/11/25. Patient was seen for Abdominal pain.) Clinical information provided by:: patient Social determinants that could affect healthcare access:: none Patient has the following chronic illnesses:: Hypercholesterolemia, Edema, Asthma, Pancreatitis, Gall Bladder Disease, Hiatal Hernia, Gastroesophageal Reflux Disease, Diabetes Mellitus Type 2, Anemia, Anxiety How is presenting disease/condition affected by chronic disease/condition?: exacerbated by Evaluation data The following diagnostics were reviewed and interpreted by me:: lab results and radiology exam(s) Lab and/or radiology exams considered but not ordered:: None Interpretation Summary: RADIOLOGY Foot X-Ray: Findings: There is no evidence of fracture or dislocation. The visualized bones are of normal configuration and density. The visualized joints are normal in configuration and alignment. The periarticular soft tissues are normal. Impression: No evidence of fracture or dislocation. Chest X-Ray: Findings: The heart, mediastinum and pulmonary jayden are unremarkable. The lungs are clear. There is no pleural effusion. The bony thorax is unremarkable. No pneumothorax. Impression: Normal radiograph of the chest. Abdomen CTA: Findings: The abdominal aorta demonstrates mild atheromatous calcification without evidence of dissection or aneurysm. The celiac, superior mesenteric, inferior mesenteric and bilateral renal arteries are patent to the extent visualized. The common iliac, external iliac and internal iliac arteries are patent bilaterally. The common femoral, superficial femoral, profunda femoral and popliteal arteries are normal in course and caliber. The anterior tibial, posterior tibial, peroneal and dorsalis pedis arteries are patent bilaterally. The liver, spleen, pancreas, and adrenals are unremarkable. No hydronephrosis. Bilateral renal cortical scarring. Status postcholecystectomy. No biliary duct dilation. No evidence of bowel obstruction. No evidence of appendicitis. There is no significant mesenteric or retroperitoneal adenopathy. The urinary bladder is unremarkable. There is no free fluid, free air or abscess. No acute fractures. Chronic disc disease at the L5-S1. Bilateral knee joint effusions. Consolidation in the right middle lobe. Impression: 1. Right middle lobe pneumonia. 2. Bilateral knee joint effusions, consider correlation with MRI if clinically indicated. 3. No evidence of arterial vascular stenosis or occlusion. Medications / Prescriptions Medications or Prescriptions considered but not ordered:: None Medication administrations:: Medication Administration History Discontinued Medications Morphine Sulfate (Morphine Sulf Inj 4 Mg/Ml Vial) 2 mg IVP STAT STA Stop: 05/27/25 03:18 Last Admin: 05/27/25 03:34 Dose: 2 mg Documented By: JANET Naproxen (Naproxen 250 Mg Tablet) 500 mg PO X1 ONE Stop: 05/27/25 00:13 Last Admin: 05/27/25 00:23 Dose: 500 mg Documented By: FRANDY Potassium Chloride (Potassium Chloride 20 Meq Tabcr) 40 meq PO X1 ONE Stop: 05/27/25 03:18 Last Admin: 05/27/25 03:34 Dose: 40 meq Documented By: JANET See above if any Consultations Consultation(s) initiated? (list below): No Diagnosis Extremity Problem Differential Diagnosis: gout, cellulitis, superficial thrombophlebitis, lower extremity edema and other (Diabetic neuropathy) Admission Indicated Admission indicated?: not indicated Explain why admission is indicated or not indicated:: Pending final disposition. Admission Request Was there a request for admission?: No Disposition Plan Disposition Plan: Discharge Discharge Attestation Discharge Attestation: The patient and all family members were given an opportunity to ask questions and understood the discharge instructions. Discharge instructions specifically effects, indications for sooner follow up or return to the emergency department, and the expected course of current diagnosis. Patient condition: Stable Discharge Plan Plan Patient Disposition: HOME (Self Care) Prescriptions/Referrals Prescriptions/Med Rec: No Action metoclopramide HCl [Reglan] 5 mg tablet 5 mg PO TID PRN (Reason: nausea and vomiting) Qty: 14 0RF ibuprofen 800 mg tablet 800 mg PO TID PRN (Reason: pain) Qty: 30 0RF methocarbamol 500 mg tablet 500 mg PO Q8H PRN (Reason: pain) Qty: 20 0RF atorvastatin 20 mg tablet 40 mg PO QDAY Patient Comments: TAKE 1 TABLET BY MOUTH ONCE DAILY metformin 1,000 mg tablet 1,000 mg PO BID Patient Comments: TAKE 1 TABLET BY MOUTH TWICE DAILY omeprazole 20 mg capsule,delayed release(DR/EC) 40 mg PO QAM Patient Comments: TAKE 1 CAPSULE BY MOUTH ONCE DAILY AT NIGHT lisinopril 20 mg Tablet 20 mg PO QDAY hydrochlorothiazide 12.5 mg Tablet 12.5 mg PO QDAY Ozempic 2 mg/dose (8 mg/3 mL) Pen Injector 2 mg SUBCUT QWEEK insulin lispro protamin-lispro [Humalog Mix 75-25 KwikPen] 100 unit/mL (75-25) insulin pen 20 unit SUBCUT QAM Patient Comments: INJECT 20 UNITS SUBCUTANEOUSLY IN THE MORNING AND 15 UNITS AT NIGHT buprenorphine [Butrans] 5 mcg/hour patch weekly 5 mcg TOPICAL QWEEK Patient Comments: APPLY 1 PATCH TOPICALLY TO SKIN ONCE A WEEK insulin lispro protamin-lispro [Humalog Mix 75-25 KwikPen] 100 unit/mL (75-25) insulin pen 15 unit SUBCUT QPM ibuprofen 600 mg tablet 600 mg PO Q6H Qty: 30 0RF Referrals: Cam Johnson MD [Primary Care Provider, Family Practice] - In 1 week Patient/Caregiver Discharge Instructions Print Language: Ugandan Stand Alone Forms: Donna Award Info., Patient Portal Info Letter
--- NOTE | 2025-05-27 03:15 | XR_ITS ---
Examination: CTA abdominal aorta iliofemoral runoff. 2-D sagittal coronal reconstructions. 3-D reconstructions, vascular May 27, 2025, 0435 hours INDICATIONS: Bilateral leg redness swelling and pain beginning 2 days ago Technique: Multiple CTA images of the abdominal aorta iliofemoral runoff arterial vessels, 2.0 mm slice thickness, post intravenous administration 100 cc [id number] 2-D sagittal coronal reconstructions. 3-D reconstructions, vascular 3-D postprocessing, including vascular maximum intensity projection images, 3-D volume rendering Low dose protocols were performed. One or more of the following dose reduction techniques were used; automated exposure control, adjustment of the mA and/or KV according to patient size, use of iterative reconstruction technique. Findings: Soft opacities in the right middle lobe No visualized liver or splenic lesion Absent gallbladder No pancreatic mass No renal or ureteral calculi, no hydronephrosis No bowel obstruction Normal appendix Urinary bladder intact No pelvic mass Contrast bolus timing error, very poor opacification of the arterial system No abdominal aortic aneurysmal dilatation Common iliac external iliac common femoral arteries are intact Superficial femoral arteries popliteal arteries and trifurcation arteries do fill with no occlusions Small knee effusions IMPRESSION: Pneumonia in the right middle lobe Contrast bolus timing error, very poor opacification of the arterial system however no arterial stenoses demonstrated.
[2025-05-27 03:25] LABS: HCG,Qualitative Serum Negative
[2025-05-27] MEDS: MORPHINE SULF INJ 4 MG/ML VIAL 2 MG IVP (03:34)
--- NOTE | 2025-05-27 03:39 | PRELIM_ITS ---
Radiograph of the chest (single view). May 26, 2025 2354 hours Clinical history: Chest pain. Comparison: None available at the time of this report. Findings: The heart, mediastinum and pulmonary jayden are unremarkable. The lungs are clear. There is no pleural effusion. The bony thorax is unremarkable. No pneumothorax. Impression: Normal radiograph of the chest. Report Electronically Signed By: Thanh Wylie 05/27/2025 3:38:49 AM [EST]
--- NOTE | 2025-05-27 03:47 | PRELIM_ITS ---
PRELIM ADDENDUM No radiographic evidence of osteomyelitis. There is a small right plantar spur. Report Electronically Signed By: Laurel John 05/27/2025 7:00:49 AM [EST] ORIGINAL PRELIM REPORT: Radiographs of both foot (05 images/views). May 26, 2025 2354 hours Clinical History: Pain and swelling. Comparison: None available at the time of this report. Findings: There is no evidence of fracture or dislocation. The visualized bones are of normal configuration and density. The visualized joints are normal in configuration and alignment. The periarticular soft tissues are normal. Impression: No evidence of fracture or dislocation. Report Electronically Signed By: Thanh Wylie 05/27/2025 3:46:55 AM [EST]
[2025-05-27 03:48] LABS: C-Reactive Protein 2.6 mg/dL (0.0-0.9)
[2025-05-27 03:52] LABS: Sed Rate (ESR) 40 mm/hr (0-20)
[2025-05-27 04:10] LABS: B-Type Natriuretic Peptide 39 pg/mL (0-100)
[2025-05-27 04:21] VITALS: BP 147/76; PULSE 100; RESP 18; TEMP 36.9; O2SAT 99
--- NOTE | 2025-05-27 05:48 | PRELIM_ITS ---
CT angiogram of the abdomen and pelvis with bilateral lower extremities without and with intravenous contrast (axial sections with sagittal and coronal reformats). May 27, 2025 at 0435 hours Clinical History: Please scan from pelvis through the ends of toes. Comparison: No prior study is available for comparison. Findings: The abdominal aorta demonstrates mild atheromatous calcification without evidence of dissection or aneurysm. The celiac, superior mesenteric, inferior mesenteric and bilateral renal arteries are patent to the extent visualized. The common iliac, external iliac and internal iliac arteries are patent bilaterally. The common femoral, superficial femoral, profunda femoral and popliteal arteries are normal in course and caliber. The anterior tibial, posterior tibial, peroneal and dorsalis pedis arteries are patent bilaterally. The liver, spleen, pancreas, and adrenals are unremarkable. No hydronephrosis. Bilateral renal cortical scarring. Status postcholecystectomy. No biliary duct dilation. No evidence of bowel obstruction. No evidence of appendicitis. There is no significant mesenteric or retroperitoneal adenopathy. The urinary bladder is unremarkable. There is no free fluid, free air or abscess. No acute fractures. Chronic disc disease at the L5-S1. Bilateral knee joint effusions. Consolidation in the right middle lobe. Impression: 1. Right middle lobe pneumonia. 2. Bilateral knee joint effusions, consider correlation with MRI if clinically indicated. 3. No evidence of arterial vascular stenosis or occlusion. Report Electronically Signed By: Thanh Wylie 05/27/2025 5:47:45 AM [EST]
[2025-05-27 06:44] VITALS: BP 140/82; PULSE 80; RESP 20; TEMP 36.8; O2SAT 98
--- NOTE | 2025-05-27 07:32 | EDNOTE_ITS ---
Emergency Room Addendum Addendum Narrative: Patient was signed out to me at 6:[address] Mcbride pending the read for foot x- ray. Read came back unremarkable with no evidence of osteomyelitis. CT that patient had earlier had shown a right middle lobe pneumonia. Patient was advised regarding findings on CT and she states that she feels like she is having symptoms of pneumonia. Will give her prescription for antibiotics for home. Have advised on as needed medication for home for pain. No indication for further emergent workup at this time. She is stable for discharge. Diagnosis: Pneumonia, neuropathy Dispo: Discharge home
== END 2025-05-27 08:12 | disposition home or self-care (01) ==
PROVIDERS: Emergency Medicine; Physician Assistant; Emergency Provider Family Medicine; PCP Family Medicine
DX: J18.9 Pneumonia, unspecified organism (principal); E11.40 Type 2 diabetes mellitus with diabetic neuropathy, unspecified; M25.462 Effusion, left knee; M25.461 Effusion, right knee; M79.672 Pain in left foot; M79.671 Pain in right foot; M79.89 Other specified soft tissue disorders; R94.31 Abnormal electrocardiogram [ECG] [EKG]; Z79.84 Long term (current) use of oral hypoglycemic drugs; Z79.85 Long-term (current) use of injectable non-insulin antidiabetic drugs; Z79.4 Long term (current) use of insulin
CPT/HCPCS: 36415; 71045; 73630; 75635; 80053; 83880; 84484; 84703; 85025; 85652; 86140; 87502; 87635; 93005; 96374; 99284; A4649; J2270; Q9967; A9270

== ENCOUNTER 2025-06-02 19:41 | Emergency (ER) | payer MEDICAID, SELFPAY ==
[2025-06-02 19:43] VITALS: BMI 22.6
[2025-06-02 19:51] VITALS: BP 171/78; PULSE 94; RESP 20; TEMP 36.8; O2SAT 100
[2025-06-02 20:03] VITALS: BP 170/92
--- NOTE | 2025-06-02 20:06 | EKG_ITS ---
[facility] Test Date: 2025-06-02 Pat Name: HANNAH LA Department: Room: - Gender: Female Blindmaker: : 1975 Requested By: Camilla Matias Order Number: [id number] Reading MD: Camilla Matias Measurements Intervals [place] Rate: 95 P: 72 SC: 128 QRS: 14 QRSD: 83 T: 61 QT: 344 QTc: 434 Interpretive Statements SINUS RHYTHM POSSIBLE LEFT ATRIAL ENLARGEMENT [-0.1mV P-WAVE IN V1/V2] ANTEROSEPTAL MYOCARDIAL INFARCTION , PROBABLY OLD [40+ ms Q WAVE IN V1-V4] Compared to ECG 05/26/2025 23:38:34 Myocardial infarct finding now present T-wave abnormality no longer present /store/[id number]
[2025-06-02 20:55] LABS: B-Type Natriuretic Peptide 49 pg/mL (0-100)
[2025-06-02 20:56] LABS: Potassium 3.2 mMol/L (3.4-5.1); Troponin I < 0.002 ng/mL (0.0-0.045)
[2025-06-02] MEDS: ALBUTEROL/IPRATROPIUM (Duoneb) RT SOL 3 ML NEBU INH (21:22)
[2025-06-02 21:23] VITALS: PULSE 65; RESP 18; O2SAT 97
--- NOTE | 2025-06-02 21:32 | PD.EDURI ---
Upper Respiratory Inf. RME/HPI General Chief Complaint: General Adult/Misc Complain Stated Complaint: BILATERAL FOOT PAIN, LUNG PAIN Time Seen by Provider: 06/02/25 20:03 Arrival date/time: 06/02/25 19:41 This is a case of 49 year old female with hx Hx of Type II DM, HTN, Chronic Back Pain, Remote Methamphetamine use, and Pancreatitis came in in the emergency room due to persistent productive cough and nasal congestion but no fever no chest pain no palpitation no shortness of breath patient is also have bilateral foot pain but no pain or swelling on the both lower extremities patient was seen here 05/27/2025 where she was diagnosed to have neuropathy secondary to diabetes and pneumonia by CT scan patient was treated and discharged with Augmentin patient states that still she has cough and both knee pain thus patient decided to sought consult here in the emergency room patient blood test was reviewed and noted that the potassium was low and was given potassium supplement in the emergency room rest of the blood test were normal glucose is normal patient is not having DKA and anion gap is also normal Limitations: no limitations Related Data Home Medications ?Medication ?Instructions ?Recorded ?Confirmed atorvastatin 20 mg tablet 40 mg PO QDAY 04/17/22 05/01/24 metformin 1,000 mg tablet 1,000 mg PO BID 04/17/22 05/01/24 omeprazole 20 mg capsule,delayed 40 mg PO QAM 04/17/22 05/01/24 release hydrochlorothiazide 12.5 mg tablet 12.5 mg PO QDAY 05/01/24 05/01/24 lisinopril 20 mg tablet 20 mg PO QDAY 05/01/24 05/01/24 semaglutide 2 mg/dose (8 mg/3 mL) 2 mg subcut QWEEK 05/01/24 05/01/24 subcutaneous pen injector (Ozempic) buprenorphine 5 mcg/hour weekly 5 mcg topical QWEEK 05/02/24 05/02/24 transdermal patch (Butrans) insulin lispro protamine-lispro 15 unit subcut QPM 05/02/24 05/02/24 100 unit/mL (75-25) subcutaneous pen (Humalog Mix 75-25 KwikPen) insulin lispro protamine-lispro 20 unit subcut QAM 05/02/24 05/02/24 100 unit/mL (75-25) subcutaneous pen (Humalog Mix 75-25 KwikPen) Previous Rx's ?Medication ?Instructions ?Recorded metoclopramide HCl 5 mg tablet 5 mg PO TID PRN nausea and 10/01/24 (Reglan) vomiting #14 tabs ibuprofen 800 mg tablet 800 mg PO TID PRN pain #30 tabs 02/26/25 methocarbamol 500 mg tablet 500 mg PO Q8H PRN pain #20 tabs 02/26/25 ibuprofen 600 mg tablet 600 mg PO Q6H #30 tabs 03/11/25 amoxicillin 875 mg-potassium 1 tab PO BID #14 tabs 05/27/25 clavulanate 125 mg tablet capsaicin 0.035 % topical cream 1 applic topical TID PRN pain #100 05/27/25 mL albuterol sulfate 90 mcg/actuation 1 puff inhalation Q4H PRN 06/02/25 aerosol inhaler (Ventolin HFA) shortness of breath or wheezing #8.5 grams amoxicillin 875 mg-potassium 1 tab PO BID #6 tabs 06/02/25 clavulanate 125 mg tablet gabapentin 100 mg capsule 100 mg PO BID 15 days #30 caps 06/02/25 promethazine-DM 6.25 mg-15 mg/5 mL 5 ml PO Q4H PRN cough #118 mL 06/02/25 oral syrup Allergies Allergy/AdvReac Type Severity Reaction Status Date / Time No Known Allergies Allergy Verified 05/26/25 23:04 Review of Systems Review of Systems Systems Reviewed: All systems reviewed, normal except as documented Past Medical History Past Medical History NEUROLOGIC: Negative Neurological Disorders or Seizures CARDIAC: Positive Hypercholesterolemia and Edema; Negative Cardiac Disorders, Congestive Heart Failure, Cellulitis or Varicose Veins RESPIRATORY: Positive Asthma and Pneumonia; Negative Chronic Obstructive Pulmonary Disease (COPD), Bronchitis, Tuberculosis or Sleep Apnea GASTROINTESTINAL: Positive Gastrointestinal Disorders, Pancreatitis, Gall Bladder Disease, Hiatal Hernia and Gastroesophageal Reflux Disease; Negative Hepatitis, Ulcer or Colorectal Cancer GENITOURINARY: Negative Genitourinary Disorders or Renal Disease REPRODUCTIVE: Positive Previous Pregnancies; Negative Breast Cancer, Genital Herpes, Gonorrhea, Pelvic Inflammatory Disease or Syphilis MUSCULOSKELETAL: Negative Musculoskeletal Disorders or Bone Cancer ENDOCRINE: Positive Endocrine Disorders and Diabetes Mellitus Type 2; Negative Diabetes Mellitus Type 1, Hyperthyroidism or Hypothyroidism HEMATOLOGIC: Positive Blood Disorders and Anemia; Negative Sickle Cell Disease PSYCHO/SOCIAL: Positive Anxiety OTHER HISTORY: Positive Hospitalization and Blood Transfusions; Negative Autoimmune Disease, Shingles, Falls, Blood Transfusion Reaction, Anesthesia Reactions, Organ Transplant, Chemotherapy, MRSA, VRSA, Vancomycin-Resistant Enterococci, Human Immunodeficiency Virus (HIV), Chicken Pox, Measles, Mumps, Rubella ([place] Measles), Pertussis, Clostridium Difficile, Cancer, Breast Cancer, Cervical Cancer, Colorectal Cancer, Lung Cancer or Ovarian Cancer Family History FAMILY HISTORY: Positive Family Psychiatric Problems, Family Respiratory Disorders, Family Cardiac Disorders, Family Cancer and Family Surgery; Negative Family Gastrointestinal Problems or Family Anesthesia Reaction Surgical History SURGICAL: Positive Abdominal Surgery and Section; Negative Cardiac Surgery, Pacemaker, Endocrine Surgery, Thyroidectomy, Ear Surgery, Nephrectomy, Joint Replacement, Neurologic Surgery, Mastectomy or Organ Transplant Social History SMOKING STATUS: Never smoker SECOND HAND EXPOSURE: No ED Exam General Limitations: Present no limitations General appearance: Present alert, in no apparent distress and other (Patient is awake alert oriented not in distress nontoxic looking well-hydrated well-nourished) Head Head exam: Present atraumatic, normocephalic and normal inspection Eye Eye exam: Present normal appearance, PERRL and EOMI ENT ENT exam: Present normal exam, normal oropharynx, mucous membranes moist and other (HEENT exam is normal and unremarkable) Neck Neck exam: Present normal inspection, full ROM and trachea midline; Absent tenderness, meningismus, lymphadenopathy or thyromegaly Chest Chest inspection: Present normal inspection and symmetric chest wall rise; Absent tenderness Respiratory Respiratory exam: Present normal lung sounds bilaterally and wheezes (Wheezing both lower lung gant no crackles no rales no retraction); Absent respiratory distress, stridor or accessory muscle use Cardiovascular Cardiovascular exam: Present regular rate, normal rhythm and normal heart sounds; Absent bradycardia, tachycardia, irregular rhythm, systolic murmur or diastolic murmur Abdominal Exam Abdominal exam: Present soft and normal bowel sounds; Absent distention, tenderness, guarding, rebound, rigidity, diminished bowel sounds, hyperactive bowel sounds, hypoactive bowel sounds or organomegaly Extremities Exam Extremities exam: Present normal inspection and full ROM Expanded Lower Extremity Exam Lower leg exam: Present Achilles tendon intact and other (Negative Watson sign no calf tenderness); Absent Homans' sign Ankle exam: Present normal inspection, full ROM and other (ROM intact neurovascular in); Absent tenderness, swelling, abrasion, laceration, ecchymosis, deformity, crepitus, dislocation, erythema, tenderness over talofibular lig or anterior draw sign Foot/toe exam: Present normal inspection, full ROM and other (ROM intact neurovascular in); Absent tenderness, swelling, abrasion, laceration, ecchymosis, deformity, crepitus, dislocation, erythema, amputation, puncture wound, foreign body, calcaneal tenderness, tenderness at base of 5th metatarsal, nail avulsion or subungual hematoma Back Exam Back exam: Present normal inspection and full ROM Neurological Exam Neurological exam: Present alert, oriented X3, CN II-XII intact, normal gait and reflexes normal; Absent motor sensory deficit Psychiatric Psychiatric exam: Present normal affect and normal mood Skin Skin exam: Present warm, dry, intact, normal color and other (Excellent skin turgor) Course Quality Measures none Orders Category Date Time Status EKG (ED ONLY) *Do not use* NOW Care 06/02/25 20:06 Completed EKG (ED Only) Stat Exams 06/02/25 20:06 Draft BNP [B-Type Natriuretic Peptide] Stat Lab 06/02/25 20:32 Completed Potassium Stat Lab 06/02/25 20:32 Completed Troponin I Stat Lab 06/02/25 20:32 Completed Albuterol/Ipratr Rt Maricarmen [Duoneb Rt Maricarmen] Med 06/02/25 20:05 Discontinued 3 ml INH X1 ONE Potassium Chloride [K-Dur] Med 06/02/25 21:18 Discontinued 40 meq PO X1 ONE cefTRIAXone [Rocephin] 1,000 mg Med 06/02/25 20:06 Discontinued Lidocaine 1% Pf Vial 5ml [Xylocaine 1% Pf 5 ml] 2.1 ml IM X1 cloNIDine HCL [Catapres] Med 06/02/25 21:26 Discontinued 0.1 mg PO X1 ONE dexAMETHasone INJ [Decadron Inj] Med 06/02/25 20:05 Discontinued 10 mg IM X1 ONE Vital Signs Vital signs: Vital Signs Temperature 98.2 F 06/02/25 19:51 Pulse Rate 94 06/02/25 19:51 Respiratory Rate 20 06/02/25 19:51 Blood Pressure 171/78 H 06/02/25 19:51 Pulse Oximetry (%) 100 06/02/25 19:51 Oxygen Delivery Method Room Air 06/02/25 19:51 Oxygen saturation 100% in room air Upper Respiratory Infection MDM Narrative MDM Narrative:: This is a case of 49 year old female with hx Hx of Type II DM, HTN, Chronic Back Pain, Remote Methamphetamine use, and Pancreatitis came in in the emergency room due to persistent productive cough and nasal congestion but no fever no chest pain no palpitation no shortness of breath patient is also have bilateral foot pain but no pain or swelling on the both lower extremities patient was seen here 05/27/2025 where she was diagnosed to have neuropathy secondary to diabetes and pneumonia by CT scan patient was treated and discharged with Augmentin patient states that still she has cough and both knee pain thus patient decided to sought consult here in the emergency room patient blood test was reviewed and noted that the potassium was low and was given potassium supplement in the emergency room rest of the blood test were normal glucose is normal patient is not having DKA and anion gap is also normal physical examination patient is awake alert oriented not in distress nontoxic looking well-hydrated well-nourished BP noted elevated at 170/78 thus patient was given clonidine 0.1 mg here in the emergency room patient is not tachycardic not tachypneic afebrile and nonhypoxic oxygen saturation is 100% in room air HEENT exam is normal and unremarkable negative meningeal sign excellent skin turgor wheezing both lower lung gant no crackles no rales no retraction no stridor heart normal rate regular rhythm no murmur no pitting edema the rest of the physical examination neurological exam is normal and unremarkable I only repeated the potassium potassium is 3.2 thus potassium K-Dur 40 mEq was given patient will follow-up with PCP to repeat the level as an outpatient patient troponin is negative BNP is normal EKG sinus rhythm no ST elevation no depression at this point patient was treated for her pneumonia patient was given breathing treatment here in the emergency room and dexamethasone patient was also given ceftriaxone IM for her pneumonia after 1 hour patient was reassessed patient condition markedly improved patient verbalized the relief of the symptoms patient will follow-up with PCP in 2 days for reevaluation she needs to see a sql data analyst for his diabetic neuropathy for any worsening symptoms or any emergent concern return precaution in the ER is advised at the time of exam no signs and symptoms of sepsis dehydration or hypoxia. Giving clonidine BP improved and noted to be 155/70 Patient was discharged with comfortable condition walking with stable gait. Patient verbalized no further complains explained diagnosis and answered patient question. Patient is comfortable with the proposed management plan including the need to follow up with his/her primary care physician and any specialist if applicable Discussed patient for any urgent condition or worsening sx, He/She needed to go to emergency room immediately or call 911. Patient acknowledge the responsibility to follow up as instructed and to monitor her/his symptoms. For any persistence of the symptoms for more than 3-5 days return precaution advised. Discussed the result of the test and was given printed discharge instruction Patient data External records reviewed:: [facility] previous records Clinical information provided by:: patient Social determinants that could affect healthcare access:: none Patient has the following chronic illnesses:: None How is presenting disease/condition affected by chronic disease/condition?: no chronic disease Evaluation data The following diagnostics were reviewed and interpreted by me:: lab results and EKG tracing(s) Lab and/or radiology exams considered but not ordered:: Reviewed Interpretation Summary: Reviewed Medications / Prescriptions Medications or Prescriptions considered but not ordered:: Given Medication administrations:: Medication Administration History Discontinued Medications Albuterol/Ipratropium (Albuterol/Ipratropium (Duoneb) Rt Maricarmen 3 Ml Nebu) 3 ml INH X1 ONE Stop: 06/02/25 20:06 Last Admin: 06/02/25 21:22 Dose: 3 ml Documented By: ABAD Clonidine (Clonidine Hcl 0.1 Mg Tablet) 0.1 mg PO X1 ONE Stop: 06/02/25 21:27 Ceftriaxone Sodium 1,000 mg/ (Lidocaine HCl 2.1 ml) 0 mg IM X1 ONE Stop: 06/02/25 20:07 Last Admin: 06/02/25 20:55 Dose: 1,000 mg Documented By: LYNETTE Dexamethasone Sodium Phosphate (Dexamethasone Sod Phos Inj 10 Mg/Ml Vial) 10 mg IM X1 ONE Stop: 06/02/25 20:06 Last Admin: 06/02/25 20:54 Dose: 10 mg Documented By: LYNETTE Potassium Chloride (Potassium Chloride 20 Meq Tabcr) 40 meq PO X1 ONE Stop: 06/02/25 21:19 Given Consultations Consultation(s) initiated? (list below): No Diagnosis Upper Respiratory Differential Diagnosis: upper respiratory infection, sinusitis, bronchitis, influenza, pharyngitis and other (Pneumonia) Most likely diagnosis given after review of the tests above:: Pneumonia diabetic neuropathy Admission Indicated Admission indicated?: not indicated Explain why admission is indicated or not indicated:: Not indicate Admission Request Was there a request for admission?: No Admission Attestation Admission request attestation: Not indicated Disposition Plan Disposition Plan: Discharge Discharge Attestation Discharge Attestation: The patient and all family members were given an opportunity to ask questions and understood the discharge instructions. Discharge instructions specifically effects, indications for sooner follow up or return to the emergency department, and the expected course of current diagnosis. Patient condition: Stable Discharge Plan Plan Patient Disposition: HOME (Self Care) Patient condition on transfer: Stable Prescriptions/Referrals Prescriptions/Med Rec: New gabapentin 100 mg capsule 100 mg PO BID 15 Days Qty: 30 0RF promethazine-DM 6.25-15 mg/5 mL syrup 5 ml PO Q4H PRN (Reason: cough) Qty: 118 0RF albuterol sulfate [Ventolin HFA] 90 mcg/actuation HFA aerosol inhaler 1 puff inhalation Q4H PRN (Reason: shortness of breath or wheezing) Qty: 8.5 0RF Rx Instructions: Please give amoxicillin-pot clavulanate 875-125 mg tablet 1 tab PO BID Qty: 6 0RF Rx Instructions: in addition for your 7 days of anitbicois No Action metoclopramide HCl [Reglan] 5 mg tablet 5 mg PO TID PRN (Reason: nausea and vomiting) Qty: 14 0RF ibuprofen 800 mg tablet 800 mg PO TID PRN (Reason: pain) Qty: 30 0RF methocarbamol 500 mg tablet 500 mg PO Q8H PRN (Reason: pain) Qty: 20 0RF atorvastatin 20 mg tablet 40 mg PO QDAY Patient Comments: TAKE 1 TABLET BY MOUTH ONCE DAILY metformin 1,000 mg tablet 1,000 mg PO BID Patient Comments: TAKE 1 TABLET BY MOUTH TWICE DAILY omeprazole 20 mg capsule,delayed release(DR/EC) 40 mg PO QAM Patient Comments: TAKE 1 CAPSULE BY MOUTH ONCE DAILY AT NIGHT lisinopril 20 mg Tablet 20 mg PO QDAY hydrochlorothiazide 12.5 mg Tablet 12.5 mg PO QDAY Ozempic 2 mg/dose (8 mg/3 mL) Pen Injector 2 mg SUBCUT QWEEK insulin lispro protamin-lispro [Humalog Mix 75-25 KwikPen] 100 unit/mL (75-25) insulin pen 20 unit SUBCUT QAM Patient Comments: INJECT 20 UNITS SUBCUTANEOUSLY IN THE MORNING AND 15 UNITS AT NIGHT buprenorphine [Butrans] 5 mcg/hour patch weekly 5 mcg TOPICAL QWEEK Patient Comments: APPLY 1 PATCH TOPICALLY TO SKIN ONCE A WEEK insulin lispro protamin-lispro [Humalog Mix 75-25 KwikPen] 100 unit/mL (75-25) insulin pen 15 unit SUBCUT QPM ibuprofen 600 mg tablet 600 mg PO Q6H Qty: 30 0RF amoxicillin-pot clavulanate 875-125 mg tablet 1 tab PO BID Qty: 14 0RF capsaicin 0.035 % cream 1 applic topical TID PRN (Reason: pain) Qty: 100 0RF Rx Instructions: do not wash area for at least 30 min after application Referrals: Cam Johnson MD [Primary Care Provider, Family Practice] - In 1 week Problem List Clinical Impression: Pneumonia, Diabetic neuropathy, Foot pain, Hypokalemia, Uncontrolled hypertension Patient/Caregiver Discharge Instructions Education Materials: ED High Blood Pressure ..., ED Hypokalemia, ED Pneumonia (Adult), ED RICE, Diabetic Neuropathy Additional Instructions: follow-up with your primary care physician in 2 days for reevaluation and to be referred to podiatry for further evaluation and treatment of your diabetic neuropathy worsening abscess symptoms or any emergent concerns such as shortness of breath wheezing retraction fever chills or vomiting etc. return to the emergency room immediately or call 911 take your medication as directed finish the course of antibiotic continue the medication that was prescribed with with the previous provider follow-up with your primary care physician to monitor your potassium level as an outpatient and for further treatment of hypokalemia increase water intake keep hydrated Pedialyte Gatorade for hydration is advised continue to monitor your blood pressure follow-up with your primary care physician to review your medication for hypertension check your BP twice a day and return to the emergency room if your blood pressure greater than 160/100 or become symptomatic Print Language: Yi Stand Alone Forms: Donna Award Info., Patient Portal Info Letter PA/ANDREA Supervising Physician PA/ANDREA Supervising Physician: Dr. Su
[2025-06-02 21:51] VITALS: BP 160/80; PULSE 89; RESP 18; TEMP 36.7; O2SAT 98
[2025-06-02 22:13] VITALS: BP 160/80; PULSE 89
--- NOTE | 2025-06-02 22:22 | PC.NURSE ---
PER MICROBIOLOGY TECHNICIAN WALDRON, PATIENT MAY BE DISCHARGED.
== END 2025-06-02 22:23 | disposition home or self-care (01) ==
PROVIDERS: Nurse Practitioner Family; Emergency Provider Emergency Medicine; PCP Family Medicine
DX: J18.9 Pneumonia, unspecified organism (principal); E87.6 Hypokalemia; E11.40 Type 2 diabetes mellitus with diabetic neuropathy, unspecified; I10 Essential (primary) hypertension
CPT/HCPCS: 36415; 83880; 84132; 84484; 93005; 94640; 96372; 99284; A9270; J0696; J1100; J3490